=== PATIENT | female | born 1940 | race Caucasian/White ===

== ENCOUNTER 2020-09-02 06:09 | Inpatient (IN) ==
--- NOTE | 2020-08-18 13:11 | PAT Medication Instructions ---
Medication Instructions Date of Service August 18, 2020 Home Medications acetaminophen [Tylenol 8 Hour] 650 mg PO BID bisacodyl [Laxative (bisacodyl)] 5 mg PO HS buspirone 5 mg PO BID docusate sodium [Stool Softener] 100 mg PO PM ferrous sulfate [iron] 325 mg PO QAM gabapentin 100 mg PO BID hydrochlorothiazide 12.5 mg PO QAM lisinopril 10 mg PO QAM pantoprazole 40 mg PO QAM potassium chloride 20 meq PO QAM DO NOT take the morning of surgery hydrochlorothiazide 12.5 mg PO QAM lisinopril 10 mg PO QAM potassium chloride 20 meq PO QAM ferrous sulfate [iron] 325 mg PO QAM Take morning of surgery With a small sip of water, OTHERWISE NOTHING TO EAT OR DRINK AFTER MIDNIGHT: pantoprazole 40 mg PO QAM gabapentin 100 mg PO BID buspirone 5 mg PO BID acetaminophen [Tylenol 8 Hour] 650 mg PO BID (okay to take up to 4 hours prior to surgery if needed) Take evening before surgery acetaminophen [Tylenol 8 Hour] 650 mg PO BID bisacodyl [Laxative (bisacodyl)] 5 mg PO HS buspirone 5 mg PO BID docusate sodium [Stool Softener] 100 mg PO PM gabapentin 100 mg PO BID Other Notes If you have any questions please call us at [phone] or [phone] or [phone] or [phone]
--- NOTE | 2020-08-19 11:19 | Anesthesiology Consultation ---
Date of Service August 19, 2020 Assessment & Plan (1) Encounter for pre-operative examination: Chart Review Chart Review: Pending: Refer to Additional Notes / Consult section (pending surgeon ordered PCP clearance and preop Covid testing ) and Patient seen in Pre Admission Testing Pt does have dementia. answers most questions. Pt very pleasant and alert. May be helpful to have present preoperatively. Per PAT appt on 08/19/20, patient denies any recent travel. No known Covid positive contacts or Covid related symptoms. Scheduled for preop Covid testing 08/26/20- will await results. Educated on importance of self quarantining, social distancing and wearing mask in public both for the patient and household contacts. Last seen by cardio 05/22/20= seen for follow up. Hx of syncope- had LINQ monitor placed. Has been asymptomatic but has at least moderate dementia. On last device interrogation patient did have an SVT during sleep time hours. For the time being, we will continue to monitor. Unfortunately this person has worsening dementia and I think a conservative approach is warranted. Teaching & Discussion Pre-Anesthesia Teaching/Discussion Notes: Instructed NPO after midnight before surgery,except medications with 15 cc of water. Medication instructions provided according to the PAT guidelines. History Surgery Operation Date: 09/02/20 07:45 Proposed Procedures p L4-L5 Decompression, Fusion, Spinal Cord Monitoring - Orville Turner, Height/Weight Height: 5 ft 2 in Weight: 49.9 kg Allergies Allergy/AdvReac Type Severity Reaction Status Date / Time cephalexin [From Keflex] Allergy Intermediate Unknown Verified 08/18/20 08:37 Medications Home Medications Medication Instructions Recorded Confirmed Last Taken acetaminophen [Tylenol 8 Hour] 650 mg PO BID 08/18/20 08/18/20 Unknown bisacodyl [Laxative (bisacodyl)] 5 mg PO HS 08/18/20 08/18/20 Unknown buspirone 5 mg PO BID 08/18/20 08/18/20 Unknown docusate sodium [Stool Softener] 100 mg PO PM 08/18/20 08/18/20 Unknown ferrous sulfate [iron] 325 mg PO QAM 08/18/20 08/18/20 Unknown gabapentin 100 mg PO BID 08/18/20 08/18/20 Unknown hydrochlorothiazide 12.5 mg PO QAM 08/18/20 08/18/20 Unknown lisinopril 10 mg PO QAM 08/18/20 08/18/20 Unknown pantoprazole 40 mg PO QAM 08/18/20 08/18/20 Unknown potassium chloride 20 meq PO QAM 08/18/20 08/18/20 Unknown Past Medical History Medical History Anxiety CKD (chronic kidney disease) stage 3, GFR 30-59 ml/min Dementia HX PROVIDED BY PT'S Depression GERD (gastroesophageal reflux disease) MILD AND OCC History of cardiac monitoring HAS LOOP RECORDER IN PLACE /RIGHT CHEST. FOLLOWS [facility]/ DUE TO SYNCOPAL EPISODES IN PAST- LOOP RECORDER PLACED IN 2018- NO RECENT SYNCOPE EPISODES History of ileus NO RECENT ISSUES Hypertension Paroxysmal SVT (supraventricular tachycardia) Per records Exercise / Class Metabolic Activity III < 4 Walking/Shop/Light housework (no chest pain or SOB with flat surface ambulation) Past Surgical History Surgical History History of adenoidectomy History of cholecystectomy History of colonoscopy History of esophagogastroduodenoscopy (EGD) History of hysterectomy History of tonsillectomy History of tooth extraction Past Anesthesia History No Hx of Anesthesia Complications and No Family Hx of Anesthesia Complications History of PONV No Hx of PONV and No Hx of Motion Sickness Social History Smoking Status: Never smoker Do You Dip or Chew Tobacco: No Hx Alcohol Use: No Hx Substance Use: No substance use type: does not use Review of Systems Patient denies chest pain, shortness of breath, dyspnea on exertion, cough, wheezing, palpitations. No hx of seizures, stroke, MS, apnea/snoring. No hx of blood clots or blood transfusions Physical Exam Vital Signs VITALS BP 185/81 (pt states she is anxious) P 66 TEMP 97.8 SP02 96% RESP 16 Constitutional no acute distress ENMT Mouth: no TMJ clicking Thyromental Distance: > or= 3.5 Finger Breadths (3.5) Mallampati Class: I Full dentures upper and lower Neck + limited neck extension (mild) Respiratory normal respiratory effort; no respiratory distress Auscultation: lungs clear to auscultation bilaterally; no wheezes Cardiovascular Rate/Rhythm: regular rate and regular rhythm Heart Sounds: no murmur Vessels: no carotid bruit Musculoskeletal Spine: no pain with cervical ROM Extremities: extremities normal to inspection Psychiatric Orientation: alert Testing Laboratory Results 08/19/20 11:50 08/19/20 11:50 PT 10.7 Seconds (9.0-12.0) 08/19/20 11:50 INR 1.0 (0.9-1.1) 08/19/20 11:50 APTT 27.8 Seconds (21.0-31.0) 08/19/20 11:50 Urine Color Yellow 08/19/20 Unknown Urine Appearance Clear (Clear) 08/19/20 Unknown Urine pH 6.5 (4.5-7.5) 08/19/20 Unknown Ur Specific Kimball 1.018 (1.000-1.030) 08/19/20 Unknown Urine Protein Negative (Negative) 08/19/20 Unknown Urine Glucose (UA) Negative (Negative) 08/19/20 Unknown Urine Ketones Negative (Negative) 08/19/20 Unknown Urine Nitrite Negative (Negative) 08/19/20 Unknown Ur Leukocyte Esterase Negative (Negative) 08/19/20 Unknown Blood Type A Positive 08/19/20 11:50 Antibody Screen NEGATIVE 08/19/20 11:50 Electrocardiogram Date: 08/19/20 SR with premature supraventricular complexes at 61 bpm. Minimal voltage criteria for LVH, may be normal variant. Chest X-Ray Date: 08/19/20 Findings: + NAD An electronic device projects over the anterior chest wall, possibly representing an event recorder Echocardiogram Date: 07/24/18 EF: 65% LV Function: normal RWMA: + none Other Findings: + LVH (Borderline increased/concentric) Valvular Disease: + no significant valvular disease Nondilated cardiac chambers. Mild TR. Stress Test Date: 02/20/19 Type: DSE Resting EF: 65% Resting LV Function: normal Resting RWMA: + none Adequate dobutamine stress test at 100% of MPHR. No echographic evidence of dobutamine induced myocardial ischemia. Dobutamine stress EKG changes (1-[address] depression in II, III, aVF, and V5-6) are probably false positive. Left atrium mildly enlarged. Mild TR. Other Testing Loop recorder 07/03/2020 = [employer]. Placed 07/17/2018. Normal sinus rhythm with intact AV node function. Adequate battery reserve. Normal implanted memory loop recorder function. 04-15-20 Episode auto recorded in the Teja zone- EGM reveals sinus bradycardia at 40 bpm during hours of sleep. 05-21-2020- Episode auto recorded in the Pause zone- EGM reveals undersensing of the R wave.
[2020-08-19 12:56] LABS: Basophils # (auto) 0.04 K/uL (0-0.2); Basophils % (auto) 0.4 %; Eosinophils # (auto) 0.12 K/uL (0-0.5); Eosinophils % (auto) 1.3 %; Hematocrit (blood only) 43.2 % (37-47); Hemoglobin 13.7 g/dL (12.0-16.0); Immature Granulocytes # (auto) 0.02 K/uL (0.00-0.02); Immature Granulocytes % (auto) 0.2 %; Lymphocytes % (auto) 23.2 %; Mean Corpuscular Hemoglobin 29.3 pg (25-34); Mean Corpuscular Hgb Conc 31.7 g/dL (32-36); Mean Corpuscular Volume 92.5 fL (80-100); Mean Platelet Volume 10.5 fL (7.4-10.4); Monocytes # (auto) 0.72 K/uL (0.11-0.59); Monocytes % (auto) 7.6 %; Neutrophils # (auto) 6.37 K/uL (1.4-6.5); Neutrophils % (auto) 67.3 %; Platelet Count 256 K/uL (130-400); RDW Coefficient of Variation 13.2 % (11.5-14.5); RDW Standard Deviation 44.4 fL (36.4-46.3); Red Blood Count 4.67 M/uL (4.2-5.4); White Blood Count 9.47 K/uL (4.8-10.8)
--- NOTE | 2020-08-19 13:05 | XRay Report ---
XR chest Pre-admission PA/Lat CLINICAL HISTORY: Preoperative chest COMPARISON STUDY: No previous studies for comparison. FINDINGS: The heart is the upper limits of normal in size. There is no failure. There is no focal pul monary consolidation. There are no pleural effusions. An electronic device projects over the anterior chest wall, possibly representing an event recorder.[ IMPRESSION: No active disease in the chest. ACT 112: Negative or not required by law. Electronically signed by: Mahin Bah M.D. 08/19/2020 1:03 PM
[2020-08-19 13:08] LABS: Appearance Urine Clear (Clear); Bilirubin Urine Negative (Negative); Blood Urine Negative (Negative); Color Urine Yellow; Glucose Urine UA Negative (Negative); Ketones Urine Negative (Negative); Leukocyte Esterase Urine Negative (Negative); Nitrite Urine Negative (Negative); Protein Urine Negative (Negative); Specific Gravity Urine 1.018 (1.000-1.030); Urobilinogen Urine Negative (Negative); pH Urine 6.5 (4.5-7.5)
[2020-08-19 13:09] LABS: BUN Creatinine Ratio 15.7 (10-20); Calcium 9.1 mg/dl (8.5-10.1); Creatinine Clr Calc Pharmacy 33.3 ml/min; Est GFR (African American) 56.5; Est GFR (Non-African American) 48.8; Potassium 3.9 mmol/L (3.5-5.1)
[2020-08-19 13:11] LABS: Partial Thromboplastin Time 27.8 Seconds (21.0-31.0); Prothrombin Time 10.7 Seconds (9.0-12.0)
--- NOTE | 2020-08-19 15:40 | Electrocardiogram Report ---
Test Reason : Blood Pressure : / mmHG Vent. Rate : 061 BPM Atrial Rate : 061 BPM P-R Int : 176 ms QRS Dur : 086 ms QT Int : 422 ms P-R-T Axes : 068 005 046 degrees QTc Int : 424 ms Sinus rhythm with Premature supraventricular complexes Minimal voltage criteria for LVH, may be normal variant Borderline ECG No previous ECGs available Confirmed by Yoel Mason ([id number]) on 08/19/2020 3:40:07 PM Referred By: Orville Turner Confirmed By:Yoel Mason
[~2020-09-02 06:09] MED LIST: ACETAMINOPHEN 500 MG TAB PO SCH; CeleBREX 200 MG CAP PO SCH; GABAPENTIN 300 MG CAP PO SCH; LR 15ML/HR IV SCH; ceFAZolin 1000MG 1,000 MG/7.5 ML SYR IV SCH
[2020-09-02] MEDS ORDERED: GLYCOPYRROLATE 0.2 MG/ML VIAL ONE (06:51)
[2020-09-02] MEDS ORDERED: PROPOFOL IV EMULSION 10 MG/ML 20 ML VIAL IV ONE (06:51)
[2020-09-02] MEDS ORDERED: LIDOCAINE HCL 2% 2 ML VIAL/AMP(20MG/ML) INFIL ONE (06:51)
[2020-09-02] MEDS ORDERED: DEXAMETHASONE SOD INJ 4 MG/ML VIAL ONE (06:51)
[2020-09-02] MEDS ORDERED: ONDANSETRON INJ 2 MG/ML 2 ML VIAL ONE (06:51)
[2020-09-02] MEDS ORDERED: ROCURONIUM BROMIDE 10 MG/ML 5 ML VIAL IV ONE (06:51)
[2020-09-02] MEDS ORDERED: NEOSTIGMINE METHYLSULFATE 1 MG/ML 10ML VIAL ONE (06:51)
[2020-09-02] MEDS ORDERED: fentaNYL citrate 100 MCG/2 ML VIAL ONE ×2 (06:52→09:09)
[2020-09-02] MEDS ORDERED: ATROPINE SULFATE 0.1 MG/ML 10ML SYR IV PRN (07:27)
[2020-09-02] MEDS ORDERED: ONDANSETRON INJ 2 MG/ML 2 ML VIAL IV PRN ×2 (07:27→11:08)
[2020-09-02] MEDS ORDERED: fentaNYL citrate 100 MCG/2 ML VIAL IV PRN (07:27)
[2020-09-02] MEDS ORDERED: ePHEDrine sulfate 50 MG/ML AMP IV PRN (07:27)
--- NOTE | 2020-09-02 07:37 | History & Physical Bridge Note ---
Date of Service September 02, 2020 History & Physical Bridge Note I have examined the patient, reviewed the History & Physical and in the interval since the performance of the History & Physical I have noted the following changes of clinical significance: no changes noted
--- NOTE | 2020-09-02 07:38 | History & Physical Report ---
Date of Service September 02, 2020 Assessment & Plan (1) Neurogenic claudication due to lumbar spinal stenosis: Admission and Anticipated Discharge Date Admission Date: L4-L5 decompression fusion History of Present Illness Chief Complaint: Back and leg pain Primary Care Provider: NEIL Bowser This is a 80-year-old female who presents with chronic persistent back and leg pain. After failing course of nonoperative care is here for surgical invention. Allergies Allergy/AdvReac Type Severity Reaction Status Date / Time cephalexin [From Keflex] Allergy Intermediate Unknown Verified 09/02/20 06:37 Home Medications Medication Instructions Recorded Confirmed Type acetaminophen [Tylenol 8 Hour] 650 mg PO BID 08/18/20 09/02/20 History bisacodyl [Laxative (bisacodyl)] 5 mg PO HS 08/18/20 08/18/20 History buspirone 5 mg PO BID 08/18/20 09/02/20 History docusate sodium [Stool Softener] 100 mg PO PM 08/18/20 08/18/20 History ferrous sulfate [iron] 325 mg PO QAM 08/18/20 09/02/20 History gabapentin 100 mg PO BID 08/18/20 09/02/20 History hydrochlorothiazide 12.5 mg PO QAM 08/18/20 09/02/20 History lisinopril 10 mg PO QAM 08/18/20 09/02/20 History pantoprazole 40 mg PO QAM 08/18/20 09/02/20 History potassium chloride 20 meq PO QAM 08/18/20 09/02/20 History Past Med/Surg History Medical History Anxiety CKD (chronic kidney disease) stage 3, GFR 30-59 ml/min Dementia HX PROVIDED BY PT'S Depression GERD (gastroesophageal reflux disease) MILD AND OCC History of cardiac monitoring HAS LOOP RECORDER IN PLACE /RIGHT CHEST. FOLLOWS [facility]/ DUE TO SYNCOPAL EPISODES IN PAST- LOOP RECORDER PLACED IN 2018- NO RECENT SYNCOPE EPISODES History of ileus NO RECENT ISSUES Hypertension Paroxysmal SVT (supraventricular tachycardia) Per records Surgical History History of adenoidectomy History of cholecystectomy History of colonoscopy History of esophagogastroduodenoscopy (EGD) History of hysterectomy History of tonsillectomy History of tooth extraction Social History Smoking Status: Never smoker Second Hand Exposure: Yes ( KID); Do You Dip or Chew Tobacco: No; Tobacco Cessation Education Requested by Patient: No Hx Alcohol Use: No Hx Substance Use: No Preferred Language: Iraqi Communication Ability: Effective Picker Feeder Required: No Beliefs That Will Affect Care: None Current Living Situation: Spouse Other Information That Helps Us Care for You: No Feels Safe at Home: Yes Safety Concerns: Feels Safe At This Time Assistive Devices: Denture - Upper, Denture - Lower and Glasses Physical Exam Physical Exam: Patient is alert and oriented Lungs clear to auscultation Heart regular rate and rhythm Results & Data ([facility]) Vital Signs (Past 12 Hours) Vital Signs Temp Pulse Resp BP Pulse Ox 09/02/20 07:01 36.5 C 63 18 195/92 H 98
[2020-09-02] MEDS ORDERED: BACITRACIN INJ 50,000 UNIT VIAL ONE (07:41)
[2020-09-02] MEDS ORDERED: BUPIVACAINE/EPINEPHRINE 0.5% MPF 1:200,000 30 ML VIAL ONE (07:41)
[2020-09-02] MEDS ORDERED: FLOSEAL HEMOSTATIC MATRIX 10ML TOP ONE (08:48)
[2020-09-02] MEDS ORDERED: PHENYLEPHRINE HCL 10 MG/ML VIAL ONE (08:50)
[2020-09-02] MEDS ORDERED: ePHEDrine sulfate 50 MG/ML AMP ONE (08:50)
--- NOTE | 2020-09-02 09:35 | Operative Report ---
Post Operative Report Pre & Post Diagnosis Operation Date: 09/02/20 07:45 Pre-Op Diagnosis: Spinal Stenosis, Lumbar Region with Neurogenic Cla Post-Op Diagnosis: Spinal Stenosis, Lumbar Region with Neurogenic Cla I identified the patient and participated in the time-out.: Yes Procedure Operation Date: 09/02/20 07:45 Actual Procedures #1 lumbar decompression with bilateral medial facetectomies and foraminotomies L3-4 and L4-5 per #2 posterior spinal fusion L4-5. #3 placement posterior instrumentation L4-5. #4 interbody fusion L4-5. #5 placement peek cage 9 x 22 mm at L4-5 per #6 placement locally harvested morselized autograft in the posterior lateral gutters. #7 placement infuse collagen sponge, master graft in the posterior lateral gutters and ostial amp interbody space. Surgeon Orville Turner, Welder Apprentice Anahi Guillory Estimated Blood Loss 50 Findings Consistent with Post-Op Diagnosis Specimens None Indications This is a 80-year-old female who presents with above-mentioned diagnosis after failing course of nonoperative care is here for the above-mentioned seizure. Description of Procedure Patient met with identified informed consent obtained. Patient was then taken to the operative suite underwent a patient placed in a prone position the Bonilla table on top of the Cj frame. All bony prominences well-padded eyes inspected to ensure no external pressure placed upon the. This point the lumbar spine was prepped and draped in a sterile fashion. Sharp dissection with the assistance of Bovie cautery performed down to and exposing the lamina and transverse processes of L4-L5 bilaterally. From caudal cephalad fashion complete laminectomy L4 partial laminectomy of L3 was performed including bilateral medial facetectomies and foraminotomies addressing severe spinal stenosis. Pedicle screws were then placed in L4 and L5 bilaterally with assi stance of fluoroscopy and appropriately sized laly placed. By way of a transforaminal portion right complete discectomy was performed endplates curetted to subcortical bleeding bone and a 9 x 22 mm peek cage filled osteobone graft tapped in position. The rods were then locked in final position. The transverse processes of L4 and L5 burred to subcortical bleeding bone. Infuse collagen sponge master graft local autograft was placed in the posterior gutters. 15 round NAEL drain inserted. The incision was then closed with 1 Vicryl in the fascia 2-0 Vicryl subcutaneously and 4 Monocryl for final skin closure. Steri-Strip sterile dressings placed. Patient waken taken PACU stable condition. Please note spinal cord monitoring was utilized at the procedure no changes noted. Lastly Anahi Guillory was present at the entire surgery involved the patient positioning complex portions of the surgery and final skin closure. I attest to the content of the Intraoperative Record and any orders documented therein. Any exceptions are noted below.
--- NOTE | 2020-09-02 09:42 | Fluoroscopy Report ---
FL lumbar spine 2-3V HISTORY: 80 years-old Female L4-5 DECOMPRESSION/FUSION/INTERBODY COMPARISON: Lumbar spine MRI 06/26/2020 TECHNIQUE: 2 spot fluoroscopic images of the lumbar spine were obtained utilizing 16.2 seconds fluoro scopy time. FINDINGS: Laminectomy with posterior interbody laly and screw fusion and discectomy changes at L4-L5. There is p ersistent grade 1 anterolisthesis L4 on L5. Hardware appears intact. No opaque foreign body or acute fracture. IMPRESSION: Fluoroscopic assistance as above. Please see operative report for further details. ACT 112: Negative or not required by law. The above report was generated using voice recognition software. It may contain grammatical, syntax o r spelling errors. Electronically signed by: Eligio Yang M.D. 09/02/2020 9:40 AM
--- NOTE | 2020-09-02 10:28 | Anesthesiology Progress Note ---
Date of Service September 02, 2020 Anesthesia Post Procedure Vital Signs Vital Signs: Temp Pulse Pulse Resp BP BP Pulse Ox 09/02/20 10:25 97.2 F L 75 16 156/87 H 99 09/02/20 10:15 77 22 154/86 H 99 09/02/20 10:05 85 24 168/80 H 100 09/02/20 09:55 55 L 12 126/58 L 100 09/02/20 09:47 98.1 F 61 16 138/63 100 09/02/20 07:01 97.7 F 63 18 195/92 H 98 Transfer of Care Handoff Completed per policy Notes Mental Status: alert / awake / arousable and participated in evaluation Patient Amnestic to Procedure: Yes Nausea / Vomiting: adequately controlled Pain: adequately controlled Airway Patency, RR, SpO2: stable & adequate BP & HR: stable & adequate Hydration State: stable & adequate Anesthetic Complications: no major complications apparent and Pt Satisfied with anesthetic care
[2020-09-02] MEDS: LACTATED RINGER'S 1,000 ML IV SCH ×2 (10:45→21:02)
[2020-09-02] MEDS ORDERED: DO NOT ADMINISTER PNEUMOCOCCAL VACCINE PRN (11:08)
[2020-09-02] MEDS ORDERED: PROMETHAZINE HCL 12.5 MG in SODIUM CHLORIDE 0.9% 50 ML IV PRN (11:08)
[2020-09-02] MEDS ORDERED: ACETAMINOPHEN 500 MG TAB PO PRN (11:08)
[2020-09-02] MEDS ORDERED: SOD PHOSPHATE/SOD BIPHOSPHATE ENEMA 132 ML BTL PR PRN (11:08)
[2020-09-02] MEDS ORDERED: ALUMINUM/MAGNESIUM SUSP 30 ML UDC PO PRN (11:08)
[2020-09-02] MEDS ORDERED: METOCLOPRAMIDE HCL INJ 5 MG/ML 2 ML VIAL IV PRN (11:08)
[2020-09-02] MEDS ORDERED: hydrOXYzine HCl 25 MG TAB PO PRN (11:08)
[2020-09-02] MEDS ORDERED: NALOXONE HCL 0.4 MG/1 ML VIAL/CARP IV PRN (11:08)
[2020-09-02] MEDS ORDERED: FAMOTIDINE 20 MG TAB PO PRN (11:08)
[2020-09-02] MEDS ORDERED: ONDANSETRON 4 MG OD TAB PO PRN (11:08)
[2020-09-02] MEDS ORDERED: MAGNESIUM HYDROXIDE SUSP 30 ML UDC PO PRN (11:08)
[2020-09-02] MEDS ORDERED: LORazepam 0.5 MG/1 ML VIAL IV PRN (11:08)
[2020-09-02] MEDS ORDERED: ACETAMINOPHEN 1,000 MG/100 ML VIAL IV PRN (11:08)
[2020-09-02] MEDS ORDERED: bisacodyL 10 MG SUPP PR PRN (11:08)
[2020-09-02] MEDS ORDERED: DO NOT ADMINISTER FLU VACCINE PRN (11:08)
[2020-09-02] MEDS ORDERED: diphenhydrAMINE Capsule 25 MG CAP PO PRN (11:08)
--- NOTE | 2020-09-02 13:05 | Hospitalist Consultation ---
Date of Consultation September 02, 2020 Assessment & Plan (1) S/P spinal surgery: This is a 80yo F with a PMH of paroxysmal SVT, hypertension, Alzheimer's, GERD, anxiety and other medical problems listed below who is POD#0 s/p lumbar decompression and fusion L3-4 and L4-[address] Turner. -POD#0 s/p lumbar decompression and fusion L3-4 and L4-[address] Turner -Pt is doing well post-operatively -Per ortho for pain control, wound care, anticoagulation and activities -Monitor H&H (EBL 50ml, pre-op hgb 13.7), continue incentive spirometry, PT/OT when appropriate (2) Hypertension: BP elevated post-operatively at 174/90. Did not take AM medications -given 10mg Lisinopril now with instructions for RN to reassess -Optimize pain control post-operatively - difficult in setting of patient's dementia. Scheduled Tylenol, monitor closely for signs of pain such as grimacing, moaning or restlessness (3) Paroxysmal SVT (supraventricular tachycardia): History of tachyarrhythmia in the past. Had LINQ monitor placed - most recent LINQ interrogation do not detect any dysrhythmias -Not currently on any medication -Follows with Dr. Baldwin of [place] [facility] - seen for pre-op eval (4) CKD (chronic kidney disease) stage 3, GFR 30-59 ml/min: Baseline Cr ~1. Monitor renal function with daily BMP (5) Anxiety: Continue Buspar (6) Dementia: care provider. Has not tolerated Aricept or Namenda (7) GERD (gastroesophageal reflux disease): Continue PPI PCP: NEIL Rincon Dispo: Per primary service Patient seen in collaboration with Dr. Flower. Please see addendum. Thank you for this consultation. We will follow the patient with you during their hospital stay. You can reach a member of the [facility] Hospitalist Team 04/04 via pager @ [phone]. Supervising Physician Co-Signing Physician Notes Pt was seen and examined. Agreed with Diana SMITH exam assessment and plan. 80yo F with a PMH of paroxysmal SVT, hypertension, Alzheimer's, GERD, anxiety, failed conservative management, had lumbar decompression and fusion L3-4 and L4-[address] Turner today. No postop complications. Pain management as per ortho. Continue incentive spirometry. PT/OT eval. Fall precaution. Will monitor H/H. BP elevated possible related to hospital setting vs pain. Will add hydralazine IV prn. Continue monitor closely. MD Mundo History of Present Illness Reason for Consultation: consult med [facility] Attending Physician: Orville Turner DO History of Present Illness This is a 80yo F with a PMH of paroxysmal SVT, hypertension, Alzheimer's, GERD, anxiety and other medical problems listed below who is POD#0 s/p lumbar decompression and fusion L3-4 and L4-[address] Turner. Patient is feeling well postoperatively. at bedside, and provided some of the history due to patient's Alzheimer's. Patient denies any pain. Has some lightheadedness when she sits upright but denies any fever, chills, headache, cough, chest pain, shortness of breath, nausea, vomiting, abdominal pain, dysuria, diarrhea constipation. Last bowel movement was this morning prior to arrival. Has not yet taking any morning medications. Allergies Allergy/AdvReac Type Severity Reaction Status Date / Time cephalexin [From Keflex] Allergy Intermediate Unknown Verified 09/02/20 06:37 Home Medications Medication Instructions Recorded Confirmed Type acetaminophen [Tylenol 8 Hour] 650 mg PO BID 08/18/20 09/02/20 History bisacodyl [Laxative (bisacodyl)] 5 mg PO HS PRN 08/18/20 09/02/20 History buspirone 10 mg PO BID 08/18/20 09/02/20 History docusate sodium [Stool Softener] 100 mg PO PM 08/18/20 09/02/20 History ferrous sulfate [iron] 325 mg PO QAM 08/18/20 09/02/20 History gabapentin 100 mg PO BID 08/18/20 09/02/20 History hydrochlorothiazide 12.5 mg PO QAM 08/18/20 09/02/20 History lisinopril 10 mg PO QAM 08/18/20 09/02/20 History pantoprazole 40 mg PO QAM 08/18/20 09/02/20 History potassium chloride 20 meq PO BID 08/18/20 09/02/20 History Patient History Medical History (Updated 09/02/20 @ 13:20 by Diana Weir PA-C) Anxiety CKD (chronic kidney disease) stage 3, GFR 30-59 ml/min Dementia HX PROVIDED BY PT'S Depression GERD (gastroesophageal reflux disease) MILD AND OCC History of cardiac monitoring HAS LOOP RECORDER IN PLACE /RIGHT CHEST. FOLLOWS [facility]/ DUE TO SYNCOPAL EPISODES IN PAST- LOOP RECORDER PLACED IN 2018- NO RECENT SYNCOPE EPISODES History of ileus NO RECENT ISSUES Hypertension Paroxysmal SVT (supraventricular tachycardia) Per records Surgical History (Updated 09/02/20 @ 13:20 by Diana Weir PA-C) History of adenoidectomy History of cholecystectomy History of colonoscopy History of esophagogastroduodenoscopy (EGD) History of hysterectomy History of tonsillectomy History of tooth extraction Family History Other Arthritis Heart disease Social History Smoking Status: Never smoker Second Hand Exposure: Yes ( KID); Do You Dip or Chew Tobacco: No; Tobacco Cessation Education Requested by Patient: No Hx Alcohol Use: No Hx Substance Use: No Preferred Language: Albanian Communication Ability: Effective Acting Teacher Required: No Beliefs That Will Affect Care: None Current Living Situation: Spouse Other Information That Helps Us Care for You: No Feels Safe at Home: Yes Safety Concerns: Feels Safe At This Time Assistive Devices: Walker Review of Systems Review of Systems: At least ten systems reviewed and negative except as noted in the HPI. Physical Exam Physical Exam: General Appearance: WD/WN, vitals as above, NAD, sitting up in bed, pleasant, conversing easily Head: normocephalic, atraumatic Eyes: normal inspection, PERRL, conjunctivae normal, anicteric sclerae ENT: external ear and nose normal, oropharynx normal Neck: normal visual inspection, trachea midline, no thyromegaly Respiratory: normal respiratory effort, lungs clear to auscultation, no wheeze, rales, rhonchi. No accessory muscle use Cardiovascular: regular rate, rhythm, no murmur, normal peripheral pulses, no BLE edema Abdomen/GI: normal bowel sounds, soft, nontender, no hepatosplenomegaly Extremities/Musculoskeletal: +Lumbosacral spinal dressing c/d/i. NAEL drain visualized. No cyanosis or clubbing, extremities motor strength 5/5 Neurologic: PERRL, CN's II-XI intact bilaterally and moves all extremities Psychiatric: Alert to person and place but not time or situation, euthymic affect Skin: no rashes, normal color, warm/dry Results & Data Results & Data ([facility]) Vital Signs (Past 12 Hours) Vital Signs Temp Pulse Pulse Pulse Resp BP BP 09/02/20 12:42 36.3 C L 60 18 182/81 H 09/02/20 11:45 61 18 178/75 H 09/02/20 11:14 36.4 C L 61 16 180/72 H 09/02/20 10:45 36.4 C L 64 16 170/76 H 09/02/20 10:35 36.2 C L 67 16 150/77 H 09/02/20 10:25 36.2 C L 75 16 156/87 H 09/02/20 10:15 77 22 154/86 H 09/02/20 10:05 85 24 168/80 H 09/02/20 09:55 55 L 12 126/58 L 09/02/20 09:47 36.7 C 61 16 138/63 09/02/20 07:01 36.5 C 63 18 195/92 H Pulse Ox 09/02/20 12:42 96 09/02/20 11:45 97 09/02/20 11:14 97 09/02/20 10:45 97 09/02/20 10:35 100 09/02/20 10:25 99 09/02/20 10:15 99 09/02/20 10:05 100 09/02/20 09:55 100 09/02/20 09:47 100 09/02/20 07:01 98
[2020-09-02] MEDS ORDERED: lisinopril 10 MG TAB PO ONE (14:30)
[2020-09-02] MEDS: ACETAMINOPHEN 500 MG TAB PO SCH ×2 (14:45→22:04)
[2020-09-02] MEDS ORDERED: COUGH DROP (SUGAR FREE) LOZ 24 LOZ/1 BOX BUCCAL ONE (15:48)
[2020-09-02] MEDS ORDERED: busPIRone 5 MG TAB PO SCH (21:00)
[2020-09-02] MEDS ORDERED: ACETAMINOPHEN 325 MG TAB PO SCH (21:00)
[2020-09-02] MEDS: DOCUSATE SODIUM 100 MG CAP PO SCH (21:08)
[2020-09-02] MEDS: busPIRone 5 MG TAB PO SCH (21:08)
[2020-09-02] MEDS: DOCUSATE SODIUM/SENNA 50/8.6MG TAB PO SCH (21:08)
[2020-09-02] MEDS: GABAPENTIN 100 MG CAP PO SCH (21:08)
[2020-09-02] MEDS: bisacodyL 5 MG TABEC PO SCH (21:08)
[2020-09-03] MEDS: POLYETHYLENE (MIRALAX) 17 GM PACK PO SCH ×3 (05:42→17:07)
[2020-09-03] MEDS: ACETAMINOPHEN 500 MG TAB PO SCH ×3 (05:42→23:18)
[2020-09-03] MEDS: HYDROmorphone INJ 0.5 MG/0.5 ML SYR IV PRN ×2 (06:31→20:24)
[2020-09-03] MEDS: LACTATED RINGER'S 1,000 ML IV SCH (07:17)
[2020-09-03 07:18] LABS: Basophils # (auto) 0.02 K/uL (0-0.2); Basophils % (auto) 0.2 %; Eosinophils # (auto) 0.11 K/uL (0-0.5); Hematocrit (blood only) 34.1 % (37-47); Hemoglobin 11.3 g/dL (12.0-16.0); Immature Granulocytes # (auto) 0.02 K/uL (0.00-0.02); Immature Granulocytes % (auto) 0.2 %; Lymphocytes % (auto) 27.9 %; Mean Corpuscular Hemoglobin 29.8 pg (25-34); Mean Corpuscular Hgb Conc 33.1 g/dL (32-36); Mean Platelet Volume 10.9 fL (7.4-10.4); Monocytes # (auto) 1.12 K/uL (0.11-0.59); Monocytes % (auto) 9.8 %; Neutrophils # (auto) 6.98 K/uL (1.4-6.5); Neutrophils % (auto) 60.9 %; Platelet Count 181 K/uL (130-400); RDW Standard Deviation 42.8 fL (36.4-46.3); Red Blood Count 3.79 M/uL (4.2-5.4); White Blood Count 11.45 K/uL (4.8-10.8)
[2020-09-03 07:50] LABS: BUN Creatinine Ratio 15.7 (10-20); Calcium 8.7 mg/dl (8.5-10.1); Creatinine Clr Calc Pharmacy 38.7 ml/min; Est GFR (African American) 68.6; Est GFR (Non-African American) 59.2; Potassium 3.7 mmol/L (3.5-5.1)
[2020-09-03] MEDS: PANTOprazole 40 MG TAB PO SCH (08:06)
[2020-09-03] MEDS: busPIRone 5 MG TAB PO SCH ×2 (08:06→20:21)
[2020-09-03] MEDS: FERROUS SULFATE 325 MG TAB PO SCH (08:06)
[2020-09-03] MEDS: lisinopril 10 MG TAB PO SCH (08:07)
[2020-09-03] MEDS: POTASSIUM CHLORIDE CRTAB 20 MEQ TABCR PO SCH (08:07)
[2020-09-03] MEDS: GABAPENTIN 100 MG CAP PO SCH ×2 (08:07→20:22)
[2020-09-03] MEDS: hydrALAZINE HCL 20 MG/ML VIAL IV PRN (08:10)
--- NOTE | 2020-09-03 09:01 | Hospitalist Progress Note ---
Date of Service September 03, 2020 Assessment & Plan (1) S/P spinal surgery: This is a 80yo F with a PMH of paroxysmal SVT, hypertension, Alzheimer's, GERD, anxiety and other medical problems listed below who is POD#1 s/p lumbar decompression and fusion L3-4 and L4-[address] Turner. EBL 50 ml; NAEL Drain 135ml tolerated procedure well Per ortho for pain control, wound care, anticoagulation and activities Monitor H&H (EBL 50ml, pre-op hgb 13.7), continue incentive spirometry, PT/OT when appropriate (2) Anemia: Preop hemoglobin 13.7 H&H 11.3 and 34.1 today Likely dilutional, as patient did not have significant blood loss EBL 50 mL, NAEL drain 315 mL monitor h/h (3) Hypertension: BP remains labile and elevated resume lisinopril and HCTZ, did not take a.m. meds PRN hydralazine for SBP > 170 Optimize pain control post-operatively - difficult in setting of patient's dementia. Scheduled Tylenol, monitor closely for signs of pain such as grimacing, moaning or restlessness (4) Paroxysmal SVT (supraventricular tachycardia): History of tachyarrhythmia in the past. Had LINQ monitor placed - most recent LINQ interrogation do not detect any dysrhythmias Not currently on any medication Follows with Dr. Baldwin of [place] [facility] - seen for pre-op eval (5) CKD (chronic kidney disease) stage 3, GFR 30-59 ml/min: Baseline Cr ~1. Monitor renal function with daily BMP (6) Anxiety: Continue Buspar mood stable (7) Dementia: care provider. Has not tolerated Aricept or Namenda mood stable, alert and oriented to self (8) GERD (gastroesophageal reflux disease): Continue PPI PCP: NEIL Rincon Dispo: Per primary service Patient seen in collaboration with Dr. Blackburn. Please see addendum. Thank you for this consultation. We will follow the patient with you during their hospital stay. You can reach a member of the [facility] Hospitalist Team 04/04 via pager @ [phone]. Admission and Anticipated Discharge Date Admission Date: September 02, 2020 Supervising Physician Co-Signing Physician Notes Patient seen and examined Refer to Radha Sanders's note for details She only complains of occasional pain at surgical site On exam, has clean dressing over the back with drain in situ. Also elevated BP Lab work showed Hb of 11.3 -Resume all home antihypertensives (lisinopril and HCTZ) -Optimize pain control -If BP still poorly controlled, will increase dose of lisinopril to 20mg -Monitor Hb -PT/OT -Surgical site management per Primary surgical team I agree with other plans as detailed above Subjective Patient was seen and examined in room 363. Postop lumbar decompression fusion by Dr. Turner. Follow-up for hypertension. "I am feeling much better than yesterday." She states her pain is much improved. She is currently eating breakfast. She denies fever, chills, sweats, lightheadedness, dizziness, chest pain, shortness breath, cough, nausea, vomiting, abdominal pain. She is passing flatus. Patient does have underlying dementia therefore ROS is unreliable. Review of Systems Review of Systems: All systems reviewed & are unremarkable except as noted in HPI & below Physical Exam Physical Exam: Gen: WD/WN, elderly, female, pleasant NAD, A&O to self, year, hospital HEENT: Normocephalic, atraumatic, conjunctivae moist, sclerae anicteric, mucous membranes moist. Lung: Clear to Auscultation bilaterally, no wheezes/rales/rhonchi Heart: Regular rate, regular rhythm, no murmurs, rubs, or gallops Abdomen: Soft, NT, ND +BS x 4 Extremities: No edema, lumbar dressing CDI, NAEL drain intact Skin: Warm, no rash, negative turgor. Results & Data Results & Data ([facility]) Vital Signs (Past 12 Hours) Vital Signs Temp Pulse Pulse Resp BP BP Pulse Ox 09/03/20 08:00 67 181/76 H 09/03/20 07:32 36.5 C 65 18 180/69 H 95 09/03/20 03:27 36.3 C L 55 L 16 153/67 H 99 09/02/20 23:33 36.4 C L 62 16 136/78 09/02/20 22:03 60 166/76 H Laboratory Results Short CBC 09/03/20 Range/Units 06:44 WBC 11.45 H (4.8-10.8) K/uL Hgb 11.3 L (12.0-16.0) g/dL Hct 34.1 L (37-47) % Plt Count 181 (130-400) K/uL [facility] 09/03/20 06:44 Sodium 136 Potassium 3.7 Chloride 102 Carbon Dioxide 27 BUN 14 Creatinine 0.92 Glucose 86 Calcium 8.7 Medications Administered Acetaminophen (Acetaminophen 500 Mg Tab) 1,000 mg PO Q8 ELIJAH Stop: 10/02/20 14:59 Last Admin: 09/03/20 05:42 Dose: 1,000 mg Documented by: [id number] Admin: 09/02/20 22:04 Dose: 1,000 mg Documented by: [id number] Admin: 09/02/20 14:45 Dose: 1,000 mg Documented by: [id number] Bisacodyl (Bisacodyl 5 Mg Tabec) 5 mg PO HS [facility] Stop: 10/02/20 20:59 Last Admin: 09/02/20 21:08 Dose: 5 mg Documented by: [id number] Buspirone HCl (Buspirone 5 Mg Tab) 10 mg PO BID ELIJAH Stop: 10/02/20 20:59 Last Admin: 09/03/20 08:06 Dose: 10 mg Documented by: [id number] Admin: 09/02/20 21:08 Dose: 10 mg Documented by: [id number] Docusate Sodium (Docusate Sodium 100 Mg Cap) 100 mg PO PM [facility] Stop: 10/02/20 20:59 Last Admin: 09/02/20 21:08 Dose: 100 mg Documented by: [id number] Ferrous Sulfate (Ferrous Sulfate 325 Mg Tab) 325 mg PO QAM ELIJAH Stop: 10/03/20 08:59 Last Admin: 09/03/20 08:06 Dose: 325 mg Documented by: [id number] Gabapentin (Gabapentin 100 Mg Cap) 100 mg PO BID [facility] Stop: 10/02/20 20:59 Last Admin: 09/03/20 08:07 Dose: 100 mg Documented by: [id number] Admin: 09/02/20 21:08 Dose: 100 mg Documented by: [id number] Hydralazine HCl (Hydralazine Hcl 20 Mg/Ml Vial) 5 mg IV Q6H PRN PRN Reason: for SBP above 170 Stop: 10/02/20 22:59 Last Admin: 09/03/20 08:10 Dose: 5 mg Documented by: [id number] Hydromorphone HCl (Hydromorphone Inj 0.5 Mg/0.5 Ml Syr) 0.5 mg IV Q3H PRN PRN Reason: MOD pain (scale 4-6) & Pre PT Stop: 09/16/20 11:07 Last Admin: 09/03/20 06:31 Dose: 0.5 mg Documented by: [id number] Lisinopril (Lisinopril 10 Mg Tab) 10 mg PO QAM [facility] Stop: 10/03/20 08:59 Last Admin: 09/03/20 08:07 Dose: 10 mg Documented by: [id number] Ondansetron HCl (Ondansetron Inj 2 Mg/Ml 2 Ml Vial) 4 mg IV Q6H PRN PRN Reason: Nausea &/or Vomiting Stop: 10/02/20 11:07 Last Admin: 09/02/20 12:35 Dose: 4 mg Documented by: [id number] Pantoprazole Sodium (Pantoprazole 40 Mg Tab) [facility] [place]: 10/03/20 08:59 Last Admin: 09/03/20 08:06 Dose: 40 mg Documented by: [id number] Polyethylene Glycol (Polyethylene (Miralax) 17 Gm Pack) 17 gm PO Q6 [facility] Stop: 10/03/20 05:59 Last Admin: 09/03/20 05:42 Dose: 17 gm Documented by: [id number] Potassium Chloride (Potassium Chloride Crtab 20 Meq Tabcr) 20 meq [facility] Stop: 10/03/20 08:59 Last Admin: 09/03/20 08:07 Dose: 20 meq Documented by: [id number] Senna/Docusate Sodium (Docusate Sodium/Senna 50/8.6mg Tab) 2 tab PO HS [facility] Stop: 10/02/20 20:59 Last Admin: 09/02/20 21:08 Dose: 2 tab Documented by: [id number] Discontinued Medications Acetaminophen (Acetaminophen 500 Mg Tab) 1,000 mg PO PREOP [facility] Stop: 09/02/20 18:00 Last Admin: 09/02/20 06:58 Dose: 1,000 mg Documented by: [id number] Bacitracin (Bacitracin Inj 50,000 Unit Vial) Confirm Administered Dose 50,000 units .ROUTE .[facility] Stop: 12/22/20 07:42 Last Admin: 09/02/20 08:30 Dose: 50,000 units Documented by: [id number] Bupivacaine HCl/Epinephrine Bitart (Bupivacaine/Epinephrine 0.5% Mpf 1:200,000 30 Ml Vial) Confirm Administered Dose 30 ml .ROUTE .[facility]-MED ONE Stop: 09/02/20 07:42 Last Admin: 09/02/20 08:31 Dose: 20 ml Documented by: [id number] Celecoxib (Celebrex 200 Mg Cap) 200 mg PO PREOP ELIJAH Stop: 09/02/20 18:00 Last Admin: 09/02/20 06:58 Dose: 200 mg Documented by: [id number] Gabapentin (Gabapentin 300 Mg Cap) 300 mg PO PREOP ELIJAH Stop: 09/02/20 18:00 Last Admin: 09/02/20 06:58 Dose: 300 mg Documented by: [id number] Cefazolin Sodium (Ancef 1000mg) 1,000 mg in 7.5 mls @ 2.5 mls/min IV PREOP ELIJAH; Protocol Stop: 09/02/20 18:00 Last Admin: 09/02/20 07:51 Dose: 2.5 mls/min Documented by: [id number] Lactated Ringer's (Lr) 1,000 mls @ 15 mls/hr IV .Q24H ELIJAH Stop: 09/03/20 05:59 Last Infusion: 09/02/20 07:51 Dose: 0 mls/hr Documented by: [id number] Admin: 09/02/20 06:58 Dose: 15 mls/hr Documented by: [id number] Lactated Ringer's (Lr) 1,000 mls @ 100 mls/hr IV .Q10H ELIJAH Stop: 10/02/20 11:07 Last Infusion: 09/03/20 08:15 Dose: 0 mls/hr Documented by: [id number] Admin: 09/03/20 07:17 Dose: 100 mls/hr Documented by: [id number] Infusion: 09/03/20 07:02 Dose: 100 mls/hr Documented by: [id number] Admin: 09/02/20 21:02 Dose: 100 mls/hr Documented by: [id number] Infusion: 09/02/20 20:45 Dose: 100 mls/hr Documented by: [id number] Admin: 09/02/20 10:45 Dose: 100 mls/hr Documented by: [id number] Lisinopril (Lisinopril 10 Mg Tab) 10 mg PO NOW ONE Stop: 09/02/20 14:31 Last Admin: 09/02/20 15:50 Dose: 10 mg Documented by: [id number] Menthol (Cough Drop (Sugar Free) Radha 24 Radha/1 Box) Confirm Administered Dose 24 radha BUCCAL .STK-MED ONE Stop: 09/02/20 15:49 Last Admin: 09/02/20 15:51 Dose: 24 radha Documented by: [id number] Miscellaneous ( Floseal Hemostatic Matrix 10ml) 20 ml TOP ONCE ONE Stop: 09/02/20 08:49 Last Admin: 09/02/20 09:29 Dose: 20 ml Documented by: [id number]
--- NOTE | 2020-09-03 10:45 | Orthopedic Progress Note ---
Date of Service September 03, 2020 Assessment & Plan (1) Neurogenic claudication due to lumbar spinal stenosis: Admission and Anticipated Discharge Date Admission Date: September 02, 2020 At this time we will continue physical therapy monitor her NAEL operatively di amarjit home as soon as tomorrow if stable. Subjective Back pain is controlled leg symptoms improved her is at the bedside. Physical Exam Physical Exam: On exam she appears comfortable. Is good strength testing. Results & Data ([facility]) Vital Signs (Past 12 Hours) Vital Signs Temp Pulse Pulse Resp BP BP Pulse Ox 09/03/20 08:00 67 181/76 H 09/03/20 07:32 36.5 C 65 18 180/69 H 95 09/03/20 03:27 36.3 C L 55 L 16 153/67 H 99 09/02/20 23:33 36.4 C L 62 16 136/78
[2020-09-03] MEDS: oxyCODONE HCL IR 5 MG TAB (IMMEDIATE RELEASE) PO PRN ×3 (10:53→18:26)
[2020-09-03] MEDS: hydroCHLOROthiazide 25 MG TAB PO SCH (10:53)
[2020-09-03] MEDS: LORazepam 0.5 MG TAB PO PRN (16:30)
[2020-09-03] MEDS: DOCUSATE SODIUM 100 MG CAP PO SCH (20:21)
[2020-09-03] MEDS: DOCUSATE SODIUM/SENNA 50/8.6MG TAB PO SCH (20:22)
[2020-09-03] MEDS: bisacodyL 5 MG TABEC PO SCH (20:24)
[2020-09-04] MEDS: POLYETHYLENE (MIRALAX) 17 GM PACK PO SCH ×4 (00:03→17:53)
[2020-09-04] MEDS: traMADol HCL 50 MG TABLET PO PRN ×2 (05:28→11:33)
[2020-09-04] MEDS: ACETAMINOPHEN 500 MG TAB PO SCH ×3 (05:29→22:01)
[2020-09-04 06:31] LABS: Appearance Urine Clear (Clear); Bilirubin Urine Negative (Negative); Blood Urine Negative (Negative); Color Urine Yellow; Glucose Urine UA Negative (Negative); Ketones Urine Trace (Negative); Leukocyte Esterase Urine Negative (Negative); Nitrite Urine Negative (Negative); Protein Urine Negative (Negative); Specific Gravity Urine 1.014 (1.000-1.030); Urobilinogen Urine Negative (Negative); pH Urine 5.5 (4.5-7.5)
[2020-09-04 08:06] LABS: Hemoglobin 10.4 g/dL (12.0-16.0); Mean Corpuscular Hemoglobin 29.5 pg (25-34); Mean Corpuscular Hgb Conc 32.5 g/dL (32-36); Mean Corpuscular Volume 90.7 fL (80-100); Mean Platelet Volume 10.3 fL (7.4-10.4); Platelet Count 191 K/uL (130-400); RDW Coefficient of Variation 13.3 % (11.5-14.5); RDW Standard Deviation 43.5 fL (36.4-46.3); Red Blood Count 3.53 M/uL (4.2-5.4); White Blood Count 14.24 K/uL (4.8-10.8)
[2020-09-04 08:41] LABS: BUN Creatinine Ratio 13.7 (10-20); Calcium 8.7 mg/dl (8.5-10.1); Creatinine Clr Calc Pharmacy 40.9 ml/min; Est GFR (African American) 73.4; Est GFR (Non-African American) 63.4; Potassium 3.7 mmol/L (3.5-5.1)
--- NOTE | 2020-09-04 09:41 | Orthopedic Progress Note ---
Date of Service September 04, 2020 Assessment & Plan (1) Neurogenic claudication due to lumbar spinal stenosis: Admission and Anticipated Discharge Date Admission Date: September 02, 2020 This time we will continue physical therapy and attempt to make her more ind ependent. Possible discharge home tomorrow. Subjective Back pain controlled leg Physical Exam Physical Exam: Patient is in the chair at the bedside is good strength testing appears comfortable. Results & Data ([facility]) Vital Signs (Past 12 Hours) Vital Signs Temp Pulse Resp BP BP Pulse Ox 09/04/20 08:00 36.6 C 86 18 146/78 H 93 09/04/20 07:20 36.8 C 86 16 146/78 H 93
[2020-09-04] MEDS: FERROUS SULFATE 325 MG TAB PO SCH (09:50)
[2020-09-04] MEDS: busPIRone 5 MG TAB PO SCH ×2 (09:50→22:08)
[2020-09-04] MEDS: hydroCHLOROthiazide 25 MG TAB PO SCH (09:51)
[2020-09-04] MEDS: POTASSIUM CHLORIDE CRTAB 20 MEQ TABCR PO SCH (09:51)
[2020-09-04] MEDS: GABAPENTIN 100 MG CAP PO SCH ×2 (09:54→22:00)
[2020-09-04] MEDS: PANTOprazole 40 MG TAB PO SCH (09:56)
[2020-09-04] MEDS: lisinopril 10 MG TAB PO SCH (09:58)
[2020-09-04] MEDS: DEXAMETHASONE SOD PHOSPHATE 6 MG in SYRINGE 0 ML IV SCH (10:28)
--- NOTE | 2020-09-04 12:47 | Hospitalist Progress Note ---
Date of Service September 04, 2020 Assessment & Plan (1) S/P spinal surgery: 80yo F with a PMH of paroxysmal SVT, hypertension, Alzheimer's, GERD, anxiety and other medical problems listed below who is POD#2 s/p lumbar decompression and fusion L3-4 and L4-[address] Turner. Per ortho for pain control, wound care, anticoagulation and activities Continue PT/OT Surgical drain has been removed (2) Anemia: Preop hemoglobin 13.7 Hemoglobin is 10.5 today Likely postop anemia secondary to blood loss and dilutional from IV fluids Monitor (3) Hypertension: Blood pressure still poorly controlled Continue lisinopril 10 mg Increase hydrochlorothiazide to 25 mg daily Monitor PRN hydralazine for SBP > 170 Optimize pain control post-operatively - difficult in setting of patient's dementia. Scheduled Tylenol, monitor closely for signs of pain such as grimacing, moaning or restlessness (4) Paroxysmal SVT (supraventricular tachycardia): History of tachyarrhythmia in the past. Had LINQ monitor placed - most recent LINQ interrogation do not detect any dysrhythmias Not currently on any medication Follows with Dr. Baldwin of [place] [facility] - seen for pre-op eval (5) CKD (chronic kidney disease) stage 3, GFR 30-59 ml/min: Baseline Cr ~1. Monitor renal function with daily BMP (6) Anxiety: Continue Buspar Mood stable (7) Dementia: care provider. Has not tolerated Aricept or Namenda (8) GERD (gastroesophageal reflux disease): Continue PPI PCP: NEIL Rincon Dispo: Per primary service Admission and Anticipated Discharge Date Admission Date: September 02, 2020 Subjective Patient seen and examined Patient reports pain at surgical site. Denies other complaints Physical Exam Constitutional: + well hydrated; no acute distress Elderly woman Eyes: PERRL, conjunctivae normal, anicteric sclerae ENMT: external ear and nose normal, oropharynx normal Respiratory: normal respiratory effort, lungs clear to auscultation Cardiovascular: Rate/Rhythm: regular rate and regular rhythm Gastrointestinal (Abdomen): normal bowel sounds, soft, nontender, no hepatosplenomegaly Musculoskeletal: Clean dressing over surgical site, lower back Neurologic: PERRL, EOMI, accommodation nl, no face palsy, no dysarthria Psychiatric: Alert, oriented to person, knows that she is in the hospital but does not know which. Not oriented to time. Results & Data Results & Data ([facility]) Vital Signs (Past 12 Hours) Vital Signs Temp Pulse Resp BP BP Pulse Ox 09/04/20 08:00 36.6 C 86 18 146/78 H 93 09/04/20 07:20 36.8 C 86 16 146/78 H 93 Laboratory Results Laboratory Results - last 24 hr 09/04/20 09/04/20 09/04/20 05:25 07:05 07:05 WBC 14.24 H RBC 3.53 L Hgb 10.4 L Hct 32.0 L MCV 90.7 MCH 29.5 MCHC 32.5 RDW Std Deviation 43.5 RDW Coeff of Annemarie 13.3 Plt Count 191 MPV 10.3 Sodium 137 Potassium 3.7 Chloride 104 Carbon Dioxide 25 Anion Gap 8.0 BUN 12 Creatinine 0.87 Est Cr Clr Drug Dosing 40.9 Est GFR ( Amer) 73.4 Est GFR (Non-Af Amer) 63.4 BUN/Creatinine Ratio 13.7 Glucose 119 H Calcium 8.7 Urine Color Yellow Urine Appearance Clear Urine pH 5.5 Ur Specific [place] 1.014 Urine Protein Negative Urine Glucose (UA) Negative Urine Ketones Trace H Urine Blood Negative Urine Nitrite Negative Urine Bilirubin Negative Urine Urobilinogen Negative Ur Leukocyte Esterase Negative
[2020-09-04] MEDS: LORazepam 0.5 MG TAB PO PRN (14:07)
[2020-09-04] MEDS: oxyCODONE HCL IR 5 MG TAB (IMMEDIATE RELEASE) PO PRN (16:33)
[2020-09-04] MEDS ORDERED: hydroCHLOROthiazide 25 MG TAB PO STA (17:46)
[2020-09-04] MEDS: bisacodyL 5 MG TABEC PO SCH (22:01)
[2020-09-04] MEDS: DOCUSATE SODIUM/SENNA 50/8.6MG TAB PO SCH (22:08)
[2020-09-04] MEDS: DOCUSATE SODIUM 100 MG CAP PO SCH (22:08)
[2020-09-05] MEDS: POLYETHYLENE (MIRALAX) 17 GM PACK PO SCH ×2 (01:09→05:40)
[2020-09-05] MEDS: traMADol HCL 50 MG TABLET PO PRN (05:42)
[2020-09-05] MEDS: ACETAMINOPHEN 500 MG TAB PO SCH (05:42)
[2020-09-05 07:17] LABS: Hematocrit (blood only) 33.4 % (37-47); Hemoglobin 10.8 g/dL (12.0-16.0); Mean Corpuscular Hemoglobin 29.3 pg (25-34); Mean Corpuscular Hgb Conc 32.3 g/dL (32-36); Mean Corpuscular Volume 90.8 fL (80-100); Mean Platelet Volume 10.4 fL (7.4-10.4); Platelet Count 209 K/uL (130-400); RDW Coefficient of Variation 13.3 % (11.5-14.5); RDW Standard Deviation 44.1 fL (36.4-46.3); Red Blood Count 3.68 M/uL (4.2-5.4); White Blood Count 14.32 K/uL (4.8-10.8)
[2020-09-05] MEDS: hydrALAZINE HCL 20 MG/ML VIAL IV PRN (07:31)
[2020-09-05 07:53] LABS: BUN Creatinine Ratio 16.4 (10-20); Calcium 9.4 mg/dl (8.5-10.1); Creatinine Clr Calc Pharmacy 36.3 ml/min; Est GFR (African American) 63.6; Est GFR (Non-African American) 54.9; Potassium 4.2 mmol/L (3.5-5.1)
[2020-09-05] MEDS ORDERED: hydroCHLOROthiazide 25 MG TAB PO SCH (09:00)
[2020-09-05] MEDS: DEXAMETHASONE SOD PHOSPHATE 6 MG in SYRINGE 0 ML IV SCH (09:35)
[2020-09-05] MEDS: busPIRone 5 MG TAB PO SCH (09:35)
[2020-09-05] MEDS: GABAPENTIN 100 MG CAP PO SCH (09:36)
[2020-09-05] MEDS: lisinopril 10 MG TAB PO SCH (10:04)
[2020-09-05] MEDS: FERROUS SULFATE 325 MG TAB PO SCH (10:04)
[2020-09-05] MEDS: PANTOprazole 40 MG TAB PO SCH (10:04)
[2020-09-05] MEDS: POTASSIUM CHLORIDE CRTAB 20 MEQ TABCR PO SCH (10:04)
[2020-09-05] MEDS: oxyCODONE HCL IR 5 MG TAB (IMMEDIATE RELEASE) PO PRN (10:07)
--- NOTE | 2020-09-05 10:59 | Discharge Summary ---
Date of Service September 05, 2020 Admission HPI Per Admitting Provider This is a 80-year-old female who presents with chronic persistent back and leg pain. After failing course of nonoperative care is here for surgical invention. Principal Diagnosis Lumbar spinal stenosis with neurogenic medication Discharge Data Allergies Allergy/AdvReac Type Severity Reaction Status Date / Time cephalexin [From Keflex] Allergy Intermediate Unknown Verified 09/02/20 06:37 Consultations 09/02/20 11:08 Consult Case Management - Discharge Planning Routine Consult Hospitalist Routine Procedures Performed Operation Date: 09/02/20 07:45 Actual Procedures p L4-L5 Decompression Fusion, Spinal Cord Monitoring(Not Applicable) - Orville Turner DO Ordered Studies 09/02/20 07:45 FL fluoroscopy <1hr Routine FL lumbar spine 2-3V Routine Hospital Course (1) Neurogenic claudication due to lumbar spinal stenosis: Patient with lumbar decompression fusion tolerated well second orthopedic for postoperative postop day 1 she was up and ambulating progressed to postop #2 on postop day #3 pain was controlled ambulating well strength intact subsequently discharged home. Discharge orders instructions from the chart for further review. Total Time Total Time Spent Total Time Spent (In Minutes): 20 minutes Discharge Plan Discharge Items Patient Disposition: Home - Self-Care Reason For Visit: Spinal Stenosis, Lumbar Region with Neurogenic Cla Discharge Diagnosis: Lumbar spinal stenosis with neurogenic claudication Activity: As commented below Non-emergency contact: Primary Care Provider Call non-emergency contact if: you have any medication questions Follow-up/Referrals: Debra Rincon CRNP [Primary Care Provider] - Diet: Regular Addtl Attending Provider Instructions: ACTIVITY RECOMMENDATIONS: SELF CARE INSTRUCTIONS AFTER THORACIC/LUMBAR FUSIONS 1. You may walk to your tolerance. It is good exercise for your legs and back. Expect some back and intermittent leg aches and pains. 2. You may perform "counter-top" level activities (make a sandwich, estrella with a project, etc.). 3. No bending or lifting of more than 10 pounds or back twisting of any nature (roll like a log when turning in bed). 4. You may ride in a car for 20-30 minutes at a time. No driving until after your first visit with your doctor. 5. Frequent changes of position and restricting sitting to 30 minutes at a time will help limit the amount of back spasms and stiffness you may experience. 6. You may discontinue the use of ambulatory aids (cane, crutches, etc.) once your strength and confidence allow. 7. You may respiratory clinician the shower and let water strike your incision when you arrive home at least once daily. Do not take a tub bath, sit in a hot tub or go into a swimming pool until after your first recheck in the office. SPECIAL CARE INSTRUCTIONS: VERY IMPORTANT TO READ AND REVIEW A. Your surgical incision has been closed with a cosmetic suture under the skin that will dissolve in about 6 weeks. In 14 days, you can use a pair of clean scissors and cut the suture that is left outside of the skin at the ends of your incision. 1. The small skin tapes can be removed 7 days after surgery if they have not fallen off by that point. 2. You may keep the wound open to air as much as possible to promote healing after post-op day number 5 unless told otherwise by your doctor. 3. If you think the wound looks like it is becoming infected (redness or wor sening drainage) and/or you are experiencing fever, chill or worsening back pain and muscle spasms, contact the office so that we may evaluate you as soon as possible. B. Complications are uncommon, but please contact us if you have any signs or symptoms of: 1. wound infection (fever higher than 102.5 degrees F, redness, separation of wound, drainage, or increasing pain from the incision) 2. blood clots in legs (pain, swelling, redness and warmth in legs) 3. urinary tract infection (fever higher than 102.5 degrees F, burning upon urination or increased frequency of urination) 4. nerve problems (inability to walk on your toes or heels, numbness, loss of bowel or bladder control) 5. any other symptoms that concern you C. Please call the office at if you have any concerns or questions about your operation or recovery. D. No smoking! Smoking drastically decreases the chance of a solid fusion. E. Do not take any anti-inflammatory medications (Indocin, Advil, Motrin, Aspirin, Naprosyn, etc.) as these may inhibit the chance of a solid fusion. Tylenol is okay to take for pain. MANAGING PAIN AFTER SPINAL SURGERY 1. Narcotic medication is intended for short-term use and will be provided for surgical pain. Surgical pain usually lasts for a period of 4-6 weeks. Narcotic medication includes Percocet, Vicodin, Darvocet, Tylenol #3 or Lortab. 2. Longer-term pain is more appropriately treated with non-narcotic medication such as Tylenol ES. 3. Muscle spasm is not appropriately treated with narcotics. Muscle relaxers such as Soma, Flexeril or Skelaxin can be used along with Tylenol ES. 4. Remember that we all live with some "aches and pains". This is not unusual or uncommon after an injury or as we get older. a. Back pain is expected and may include muscle spasms for 4 to 6 weeks after surgery. The pain should gradually improve. If the pain worsens for no apparent reason, please contact the office. b. Intermittent leg pain may also be experienced and should not be concerned about unless it worsens for no apparent reason. If so, please contact the office. 5. We will provide appropriate medication within the normal guidelines of their prescribed use. We will also be very cautious and aware of potential abuse and extended duration of patients' medication needs. a. Pain medications are for your comfort and to assist with sleep and rest so that the tissue can heal. They are not provided in order to return to normal activity and should not be used through the day. To do so or worsening pain at night can result from ongoing tissue damage and development of tolerance to the prescribed medicine. 6. Please allow 2-3 days to process refills. Prescriptions will not be mailed but must be picked up at the office. FOLLOW UP VISIT: Keep your scheduled follow-up appointment. Any questions, please call the office at . Pending Studies at Discharge: No Stand-Alone Forms: My [facility] [employer], Smoking Cessation Medications and DC Order Prescriptions: New tramadol 50 mg tablet 50 mg PO Q6H PRN (Reason: pain, moderate) Qty: 30 RF: 0 Continued buspirone 5 mg Tablet 10 mg PO BID RF: 0 acetaminophen [Tylenol 8 Hour] 650 mg Tablet Extended Release 650 mg PO BID RF: 0 pantoprazole 40 mg Tablet,Delayed Release (Dr/Ec) 40 mg PO QAM RF: 0 ferrous sulfate [iron] 325 mg (65 mg iron) Tablet 325 mg PO QAM RF: 0 lisinopril 10 mg Tablet 10 mg PO QAM RF: 0 docusate sodium [Stool Softener] 100 mg Tablet 100 mg PO PM RF: 0 Laxative (bisacodyl) 5 mg Tablet 5 mg PO HS PRN (Reason: Constipation) RF: 0 gabapentin 100 mg Tablet 100 mg PO BID RF: 0 hydrochlorothiazide 12.5 mg Tablet 12.5 mg PO QAM RF: 0 potassium chloride 20 mEq Tablet Extended Release 20 meq PO BID RF: 0 Discharge Orders: Discharge Order (Routine); Ordered 09/05/20 Ordered By: Orville Turner Admission Data Admit Date/Time: 09/02/20 09:45 Attending Provider: Orville Turner Admit Provider: Orville Turner Primary Care Provider: Debra Rincon Other Providers: Landon Tovar ; Belia Blackburn I.
--- NOTE | 2020-09-05 11:25 | Hospitalist Progress Note ---
Date of Service September 05, 2020 Assessment & Plan (1) S/P spinal surgery: 80yo F with a PMH of paroxysmal SVT, hypertension, Alzheimer's, GERD, anxiety and other medical problems listed below who is POD#2 s/p lumbar decompression and fusion L3-4 and L4-[address] Turner. Per ortho for pain control, wound care, anticoagulation and activities Surgical drain has been removed (2) Anemia: Preop hemoglobin 13.7 Hemoglobin remains stable in 10s Likely postop anemia secondary to blood loss and dilutional from IV fluids Monitor (3) Hypertension: Blood pressure still poorly controlled Continue lisinopril 10 mg Continue hydrochlorothiazide 25mg on discharge. Pain control Follow up with PCP. If still poorly controlled, can increase lisinopril (4) Paroxysmal SVT (supraventricular tachycardia): History of tachyarrhythmia in the past. Had LINQ monitor placed - most recent LINQ interrogation do not detect any dysrhythmias Not currently on any medication Follows with Dr. Baldwin of [place] - seen for pre-op eval (5) CKD (chronic kidney disease) stage 3, GFR 30-59 ml/min: Baseline Cr ~1. Monitor renal function with daily BMP (6) Anxiety: Continue Buspar Mood stable (7) Dementia: care provider. Has not tolerated Aricept or Namenda (8) GERD (gastroesophageal reflux disease): Continue PPI PCP: NEIL Rincon Dispo: Per primary service Admission and Anticipated Discharge Date Admission Date: September 02, 2020 Subjective Patient seen and examined Reports pain is getting better controlled Denied any other complaints Patient is demented, has limited insight and anxious to go home Review of Systems Review of Systems: All systems reviewed & are unremarkable except as noted in Subjective Physical Exam Constitutional: + well hydrated; no acute distress Eyes: PERRL, conjunctivae normal, anicteric sclerae ENMT: external ear and nose normal, oropharynx normal Respiratory: normal respiratory effort, lungs clear to auscultation Cardiovascular: Rate/Rhythm: regular rate and regular rhythm S1 S2 Gastrointestinal (Abdomen): normal bowel sounds, soft, nontender, no hepatosplenomegaly Musculoskeletal: Clean dressing over lower back Neurologic: PERRL, EOMI, accommodation nl, no face palsy, no dysarthria Psychiatric: Orientation: alert and oriented to person Results & Data Results & Data ([facility]) Vital Signs (Past 12 Hours) Vital Signs Temp Pulse Resp BP Pulse Ox 09/05/20 10:09 89 184/74 H 09/05/20 07:18 36.7 C 81 18 194/76 H 96 Laboratory Results Laboratory Results - last 24 hr 09/05/20 09/05/20 09/05/20 06:57 06:57 08:48 WBC 14.32 H RBC 3.68 L Hgb 10.8 L Hct 33.4 L MCV 90.8 MCH 29.3 MCHC 32.3 RDW Std Deviation 44.1 RDW Coeff of Annemarie 13.3 Plt Count 209 MPV 10.4 Sodium 134 L Potassium 4.2 Chloride 101 Carbon Dioxide 28 Anion Gap 5.0 BUN 16 Creatinine 0.98 Est Cr Clr Drug Dosing 36.3 Est GFR ( Amer) 63.6 Est GFR (Non-Af Amer) 54.9 BUN/Creatinine Ratio 16.4 Glucose 119 H POC Glucose 109 H Calcium 9.4
== END 2020-09-05 12:40 | disposition home or self-care (01) | DRG 454 ==
LOC: ASU 06:09 → 3W 09:45

== ENCOUNTER 2020-09-13 08:31 | Inpatient (IN) ==
[2020-09-13] MEDS ORDERED: HYDROmorphone INJ 0.5 MG/0.5 ML SYR IV STA (08:45)
[2020-09-13] MEDS ORDERED: SODIUM CHLORIDE 0.9% 500 ML IV ONE ×2 (08:45→09:50)
[2020-09-13] MEDS ORDERED: LABETALOL HCL IV 5 MG/ML 20ML IV STA (08:45)
--- NOTE | 2020-09-13 08:50 | Emergency Department Note ---
Impression & Plan Post-operative pain, Acute low back pain with left-sided sciatica, Intractable back pain ED Provider Note Name: LORI VANCE Age: 80 Sex: F Arrives Via: Walk-In Informant: Patient, ED Provider: Vince Núñez MD Chief Complaint: low back pain Impression: Post-Operative Pain Acute low back pain with left sided sciatica Intractable back pain Medical Decision Makin yr old female with dementia who had spinal surgery last week, seen by me yest farrah in ED for pain back. Attempted treating pain at home with increased pain meds after discussing with her surgeon, however this morning pain too much and returned to ED. She has no neuro deficits on exam once again. Given IV dilaudid with improvement in pain. Labs stable. Imaging orderer per vicky which is concerning for shifting of hardware. Surgeon in to evaluated and hospitalize. Prior Medical Record and Triage/Nursing Notes reviewed by Me Additional history obtained from chart and Differentials:Infection, seroma, post op pain, sciatica, epidural bleed, cauda equina, hardware failure, muscular pain amongst other pathologies. Vital Signs: reviewed and remarkable for HTN Interventions: dilaudid 0.5mg IV, labetalol 5mg IV Labs:Reviewed and remarkable for no significant abnormalities (WBC similar to previous) Imaging:Radiologist interpretation reviewed by me: lumbar ap/lateral concerning for hardware movement Consults:Dr Turner - will hospitalize Plan: Disposition:Hospitalization. Condition: Good History of Present Illness:80 yr old female arrives for evaluation of back pain. Patient with lumbar back surgery on 09/02/20 who was doing well at home until a few days ago with worsening low back pain. Radiates to left hip and thigh. Worse with movement, better with rest. Using Tramadol and Oxy IR at home for pain control though no improvement after taking this morning. Was seen yesterday and doing well post IV narcotics, IV toradol, and IV decadron. She took her last of steroid taper this morning. Denies urinary control issues, has not had BM since yesterday morning though no abdominal pain, nor significant discomfort. Notes pain worse with movement, but denies actual weakness. No fall, trauma, injury at home. Denies fevers, chills, cp, sob, nausea, vomiting, nor other symptoms. ROS: See above HPI for pertinent positives & negatives. A total of 10 systems reviewed and were otherwise negative. Past Medical History:See Below Past Surgical History:See Below Family History:See Below Social History:See Below Home Medications:See Below Allergies:Keflex Vitals:Blood Pressure: 202/76, Pulse 6, RR 18, T 37.1C, O2 97% on RA Physical Exam: GENERAL: Patient is uncomfortable appearing and in moderate distress. EYES: No scleral icterus, unremarkable pupils. ENT: Mucous membranes moist, no nasal congestion. NECK: No masses appreciated, nomeningismus, trachea is midline. RESPIRATORY: No dyspnea. Clear to auscultation and equal bilaterally. No wheeze, no rhonchi. CARDIOVASCULAR: Regular rate and rhythm.No murmurs, rubs, gallops appreciated. GASTROINTESTINAL: Abdomen soft, non-tender, no peritonitis.Bowel sounds positive.No masses appreciated. BACK: No midline tenderness, no CVA tenderness EXTREMITIES: Severe pain with movement of left leg, otherwise good pulses, leslie l motion all extremities, no cyanosis, no edema. NEUROLOGIC: Alert and oriented, no acute motor or sensory deficits, no focal weakness, cranial nerves grossly intact. SKIN: Bruising of left buttock to lateral thigh. No rash, no jaundice, no diaphoresis. PSYCH: Appropriate GCS: 15 ED Course: Times/Reassessments: feeling better with dilaudid, bp trending down, still quite some pain with movement thus surgeon in to see Vince Núñez MD Past Med/Surg History Medical History (Updated 09/13/20 @ 14:12 by Vince Núñez MD) Anxiety CKD (chronic kidney disease) stage 3, GFR 30-59 ml/min Dementia HX PROVIDED BY PT'S Depression GERD (gastroesophageal reflux disease) MILD AND OCC History of cardiac monitoring HAS LOOP RECORDER IN PLACE /RIGHT CHEST. FOLLOWS [facility]/ DUE TO SYNCOPAL EPISODES IN PAST- LOOP RECORDER PLACED IN 2018- NO RECENT SYNCOPE EPISODES History of ileus NO RECENT ISSUES Hypertension Paroxysmal SVT (supraventricular tachycardia) Per records Surgical History (Updated 09/02/20 @ 13:20 by Diana Weir PA-C) History of adenoidectomy History of cholecystectomy History of colonoscopy History of esophagogastroduodenoscopy (EGD) History of hysterectomy History of tonsillectomy History of tooth extraction Family History Other Arthritis Heart disease Social History Smoking Status: Never smoker Second Hand Exposure: Yes ( KID); Hx Alcohol Use: No Hx Substance Use: No Preferred Language: Arabic Communication Ability: Effective Furniture Delivery Driver Required: No Beliefs That Will Affect Care: None Current Living Situation: Spouse Other Information That Helps Us Care for You: No Feels Safe at Home: Yes Assistive Devices: Walker Allergies Allergies Allergy/AdvReac Type Severity Reaction Status Date / Time cephalexin [From Keflex] Allergy Intermediate Unknown Verified 09/13/20 09:07 Home Meds Home Medications Medication Instructions Recorded Confirmed Laxative (bisacodyl) 5 mg PO HS PRN 08/18/20 09/13/20 acetaminophen [Tylenol 8 Hour] 650 mg PO BID 08/18/20 09/13/20 buspirone 10 mg PO BID 08/18/20 09/13/20 docusate sodium [Stool Softener] 100 mg PO PM 08/18/20 09/13/20 ferrous sulfate [iron] 325 mg PO QAM 08/18/20 09/13/20 lisinopril 10 mg PO QAM 08/18/20 09/13/20 pantoprazole 40 mg PO QAM 08/18/20 09/13/20 potassium chloride 20 meq PO BID 08/18/20 09/13/20 gabapentin 100 mg PO DAILY 09/12/20 09/13/20 methylprednisolone 4 mg PO UD 09/12/20 09/13/20 Previous Rx's Medication Instructions Recorded tramadol 50 mg PO Q6H PRN #30 tab 09/03/20 hydrochlorothiazide 25 mg PO QAM #30 tab 09/05/20 lidocaine 1 patch TOPICAL DAILY #15 ea 09/12/20 oxycodone 2.5 - 5 mg PO Q6H PRN #12 tab 09/12/20 Results & Data (ED) Vital Signs Vital Signs - 24 hr 09/13/20 08:33 09/13/20 08:52 09/13/20 09:23 Temperature 37.1 C Temperature Source Temporal Artery Scan Pulse Rate 66 Pulse Rate [Right Finger] 70 56 L Respiratory Rate 18 20 22 Respiratory Effort / Characteristics Non-Labored Spontaneous Respiratory Depth Normal Respiratory Pattern Regular Blood Pressure 202/76 H Blood Pressure [Right Arm] 185/78 H 189/89 H Blood Pressure Mean 118 Blood Pressure Mean [Right Arm] 113 122 Blood Pressure Position Sitting Pulse Oximetry 97 98 100 Oxygen Delivery Method Room Air Room Air Room Air Sepsis Recent Fever Within 48 Hours No Sepsis New/Unexplained Change in Mental Status N/A Sepsis Action Taken by Nursing No Action Required 09/13/20 10:15 Temperature Temperature Source Pulse Rate Pulse Rate [Right Finger] 62 Respiratory Rate 20 Respiratory Effort / Characteristics Respiratory Depth Respiratory Pattern Blood Pressure Blood Pressure [Right Arm] 197/87 H Blood Pressure Mean Blood Pressure Mean [Right Arm] 123 Blood Pressure Position Pulse Oximetry 100 Oxygen Delivery Method Room Air Sepsis Recent Fever Within 48 Hours Sepsis New/Unexplained Change in Mental Status Sepsis Action Taken by Nursing Laboratory Data Result diagrams: 09/13/20 08:56 09/13/20 08:56 Lab Results 09/13/20 09/13/20 Range/Units 08:56 08:56 WBC 15.50 H (4.8-10.8) K/uL RBC 3.92 L (4.2-5.4) M/uL Hgb 11.4 L (12.0-16.0) g/dL Hct 35.5 L (37-47) % MCV 90.6 (80-100) fL MCH 29.1 (25-34) pg MCHC 32.1 (32-36) g/dL RDW Std Deviation 43.2 (36.4-46.3) fL RDW Coeff of Annemarie 13.2 (11.5-14.5) % Plt Count 464 H (130-400) K/uL MPV 9.3 (7.4-10.4) fL Immature Gran % (Auto) 0.5 % Neut % (Auto) 74.0 % Lymph % (Auto) 14.1 % [place] % (Auto) 11.2 % Eos % (Auto) 0.1 % Baso % (Auto) 0.1 % Neut # (Auto) 11.46 H (1.4-6.5) K/uL Lymph # (Auto) 2.19 (1.2-3.4) K/uL [place] # (Auto) 1.74 H (0.11-0.59) K/uL Eos # (Auto) 0.01 (0-0.5) K/uL Baso # (Auto) 0.02 (0-0.2) K/uL Immature Gran # (Auto) 0.08 H (0.00-0.02) K/uL Sodium 136 (136-145) mmol/L Potassium 4.3 D (3.5-5.1) mmol/L Chloride 104 (98-107) mmol/L Carbon Dioxide 27 (21-32) mmol/L Anion Gap 5.0 (3-11) BUN 31 H D (7-18) mg/dl Creatinine 1.16 (0.6-1.2) mg/dl Est Cr Clr Drug Dosing 29.7 ml/min Est GFR ( Amer) 51.9 Est GFR (Non-Af Amer) 44.7 BUN/Creatinine Ratio 27.1 H (10-20) Glucose 103 H (70-99) mg/dl Calcium 9.3 (8.5-10.1) mg/dl Administered Medications Discontinued Medications Hydromorphone HCl (Hydromorphone Inj 0.5 Mg/0.5 Ml Syr) 0.5 mg IV NOW STA Stop: 09/13/20 08:46 Last Admin: 09/13/20 08:58 Dose: 0.5 mg Documented by: [id number] Sodium Chloride (Nss) 500 mls @ 999 mls/hr IV .Q31M ONE Stop: 09/13/20 09:15 Last Infusion: 09/13/20 10:26 Dose: 0 mls/hr Documented by: [id number] Admin: 09/13/20 09:03 Dose: 999 mls/hr Documented by: [id number] Sodium Chloride (Nss) 500 mls @ 999 mls/hr IV .Q31M ONE Stop: 09/13/20 10:20 Last Infusion: 09/13/20 11:06 Dose: 0 mls/hr Documented by: [id number] Admin: 09/13/20 10:33 Dose: 999 mls/hr Documented by: [id number] Labetalol HCl (Labetalol Hcl Iv 5 Mg/Ml 20ml) 5 mg IV NOW STA Stop: 09/13/20 08:46 Last Admin: 09/13/20 09:02 Dose: 5 mg Documented by: [id number] Cosigned by: [id number] Discharge Plan Visit Data Chief Complaint: Back Injury/Pain Stated Complaint: POST BACK OPERATION CAN HARDLY WALK ED Provider: Vince Núñez Discharge Problem: Post-operative pain, Acute low back pain with left-sided sciatica, Intractable back pain Discharge Problem: Acute low back pain with left-sided sciatica Qualifiers: Back pain laterality: left Qualified Code(s): M54.42 - Lumbago with sciatica, left side
[2020-09-13 09:21] LABS: Basophils # (auto) 0.02 K/uL (0-0.2); Basophils % (auto) 0.1 %; Eosinophils # (auto) 0.01 K/uL (0-0.5); Eosinophils % (auto) 0.1 %; Hematocrit (blood only) 35.5 % (37-47); Hemoglobin 11.4 g/dL (12.0-16.0); Immature Granulocytes # (auto) 0.08 K/uL (0.00-0.02); Immature Granulocytes % (auto) 0.5 %; Lymphocytes # (auto) 2.19 K/uL (1.2-3.4); Lymphocytes % (auto) 14.1 %; Mean Corpuscular Hemoglobin 29.1 pg (25-34); Mean Corpuscular Hgb Conc 32.1 g/dL (32-36); Mean Corpuscular Volume 90.6 fL (80-100); Mean Platelet Volume 9.3 fL (7.4-10.4); Monocytes # (auto) 1.74 K/uL (0.11-0.59); Monocytes % (auto) 11.2 %; Neutrophils # (auto) 11.46 K/uL (1.4-6.5); Platelet Count 464 K/uL (130-400); RDW Coefficient of Variation 13.2 % (11.5-14.5); RDW Standard Deviation 43.2 fL (36.4-46.3); Red Blood Count 3.92 M/uL (4.2-5.4)
[2020-09-13] MEDS ORDERED: HYDROmorphone INJ 0.5 MG/0.5 ML SYR IV PRN ×2 (09:37→12:15)
[2020-09-13 09:47] LABS: BUN Creatinine Ratio 27.1 (10-20); Calcium 9.3 mg/dl (8.5-10.1); Creatinine Clr Calc Pharmacy 29.7 ml/min; Est GFR (African American) 51.9; Est GFR (Non-African American) 44.7; Potassium 4.3 mmol/L (3.5-5.1)
--- NOTE | 2020-09-13 10:45 | History & Physical Report ---
Date of Service September 13, 2020 Assessment & Plan (1) Post-operative pain: Admission and Anticipated Discharge Date Admission Date: This time I think she is experiencing normal postoperative discomfort. She is unable to manage herself at home. I will admitted the hospital for physical therapy and pain management. I suspect she will be able to discharge home the next day or so. History of Present Illness Chief Complaint: Back pain Primary Care Provider: NEIL Bowser This is a 80-year-old female known to me status post lumbar decompression fusion. Overall she is done very nicely but over the past 48 hours has had increasing left-sided lumbar back pain. No radicular complaints no loss of bowel bladder control no fevers chills nausea vomiting. Allergies Allergy/AdvReac Type Severity Reaction Status Date / Time cephalexin [From Keflex] Allergy Intermediate Unknown Verified 09/13/20 09:07 Home Medications Medication Instructions Recorded Confirmed Type Laxative (bisacodyl) 5 mg PO HS PRN 08/18/20 09/13/20 History acetaminophen [Tylenol 8 Hour] 650 mg PO BID 08/18/20 09/13/20 History buspirone 10 mg PO BID 08/18/20 09/13/20 History docusate sodium [Stool Softener] 100 mg PO PM 08/18/20 09/13/20 History ferrous sulfate [iron] 325 mg PO QAM 08/18/20 09/13/20 History lisinopril 10 mg PO QAM 08/18/20 09/13/20 History pantoprazole 40 mg PO QAM 08/18/20 09/13/20 History potassium chloride 20 meq PO BID 08/18/20 09/13/20 History tramadol 50 mg PO Q6H PRN #30 tab 09/03/20 09/13/20 Rx hydrochlorothiazide 25 mg PO QAM #30 tab 09/05/20 09/13/20 Rx gabapentin 100 mg PO DAILY 09/12/20 09/13/20 History lidocaine 1 patch TOPICAL DAILY #15 ea 09/12/20 09/13/20 Rx methylprednisolone 4 mg PO UD 09/12/20 09/13/20 History oxycodone 2.5 - 5 mg PO Q6H PRN #12 tab 09/12/20 09/13/20 Rx Past Med/Surg History Medical History (Updated 09/12/20 @ 12:52 by Vince Núñez MD) Anxiety CKD (chronic kidney disease) stage 3, GFR 30-59 ml/min Dementia HX PROVIDED BY PT'S Depression GERD (gastroesophageal reflux disease) MILD AND OCC History of cardiac monitoring HAS LOOP RECORDER IN PLACE /RIGHT CHEST. FOLLOWS [facility]/ DUE TO SYNCOPAL EPISODES IN PAST- LOOP RECORDER PLACED IN 2018- NO RECENT SYNCOPE EPISODES History of ileus NO RECENT ISSUES Hypertension Paroxysmal SVT (supraventricular tachycardia) Per records Surgical History (Updated 09/02/20 @ 13:20 by Diana Weir PA-C) History of adenoidectomy History of cholecystectomy History of colonoscopy History of esophagogastroduodenoscopy (EGD) History of hysterectomy History of tonsillectomy History of tooth extraction Family History Other Arthritis Heart disease Social History Smoking Status: Never smoker Second Hand Exposure: Yes ( KID); Hx Alcohol Use: No Hx Substance Use: No Preferred Language: Tajik Communication Ability: Effective Public Health Specialist Required: No Beliefs That Will Affect Care: None Current Living Situation: Spouse Other Information That Helps Us Care for You: No Feels Safe at Home: Yes Assistive Devices: Walker Physical Exam Physical Exam: Patient's incision is clean dry and intact. There are no erythema no drainage. She has marked tenderness palpation of the left-sided paravertebral musculature. No sciatic notch discomfort. Excellent strength testing lower extremities. Results & Data ([facility]) Vital Signs (Past 12 Hours) Vital Signs Temp Pulse Pulse Resp BP BP Pulse Ox 09/13/20 10:15 62 20 197/87 H 100 09/13/20 09:23 56 L 22 189/89 H 100 09/13/20 08:52 70 20 185/78 H 98 09/13/20 08:33 37.1 C 66 18 202/76 H 97
--- NOTE | 2020-09-13 11:38 | XRay Report ---
LUMBAR SPINE 3 VIEWS CLINICAL HISTORY: Bilateral hip pain status post lumbar spine surgery. FINDINGS: 3 views of the lumbar spine are correlated with MRI of lumbar spine dated 06/26/2020 and i ntraoperative radiograph dated 09/02/2020. The skeletal structures are osteopenic. There is no radiog raphic evidence of fracture or malalignment. Vertebral body height is maintained. There is postoperat robert change from laminectomy and posterior fusion at L4-L5. The orthopedic hardware appears intact. Th ere is 1.5 cm of anterolisthesis at L4-L5 which is increased from the intraoperative radiograph dated 09/02/2020. Additionally, the disc spacer at L4-L5 has shifted posteriorly as compared to previous. Alignment is otherwise preserved. There is moderate to advanced disc space narrowing at L1-L2 and L5- S1 with associated endplate sclerosis. The transverse processes appear intact. Anterior and lateral m arginal osteophytes are seen throughout. There is mild to moderate lumbar levocurvature. The visualiz ed bony pelvis appears intact. There is a nonobstructed abdominal bowel gas pattern. Cholecystectomy clips are seen in the right upper quadrant. IMPRESSION: 1. No acute fracture is identified involving the lumbar spine. 2. There is postoperative change from laminectomy and posterior fusion at L4-L5. 3. There is increasing anterolisthesis at L4-L5 as compared to the 09/02/2020 intraoperative images. Additionally, the disc spacer at L4-L5 has shifted posteriorly from previous. Follow-up with the [facility] orthopedic surgeon is recommended. ACT 112: Negative or not required by law. Electronically signed by: Chace Delgado M.D. 09/13/2020 11:36 AM
[2020-09-13] MEDS ORDERED: ONDANSETRON 4 MG OD TAB PO PRN (12:15)
[2020-09-13] MEDS ORDERED: ONDANSETRON INJ 2 MG/ML 2 ML VIAL IV PRN (12:15)
[2020-09-13] MEDS ORDERED: NON-FORMULARY MEDICATION (Methylprednisolone 4 mg tablets,dose pack) PO SCH (12:15)
[2020-09-13] MEDS ORDERED: METOCLOPRAMIDE HCL INJ 5 MG/ML 2 ML VIAL IV PRN (12:15)
[2020-09-13] MEDS ORDERED: PROMETHAZINE HCL 12.5 MG in SODIUM CHLORIDE 0.9% 50 ML IV PRN (12:15)
[2020-09-13] MEDS ORDERED: ACETAMINOPHEN 325 MG TAB PO PRN (12:15)
[2020-09-13] MEDS: dexAMETHasone 8 MG in SYRINGE 0 ML IV SCH (14:10)
[2020-09-13] MEDS: LACTATED RINGER'S 1,000 ML IV SCH (14:10)
[2020-09-13] MEDS: LORazepam 1 MG/2 ML VIAL IV PRN (14:11)
--- NOTE | 2020-09-13 15:29 | Hospitalist Consultation ---
Date of Consultation September 13, 2020 Assessment & Plan (1) Post-operative pain: s/p lumbar decompression and fusion L3-4 and L4-[address] Turner on 09/02/20 Continue pain control as per ortho On dexamethasone as per ortho Continue PT/OT Pain management consulted Hypertension: BP elevated Continue lisinopril 10 mg and hydrochlorothiazide 25mg Continue Hydralazine IV prn Continue monitor BP Paroxysmal SVT (supraventricular tachycardia): History of tachyarrhythmia in the past. Had LINQ monitor placed - most recent LINQ interrogation do not detect any dysrhythmias Not currently on any medication Follows with Dr. Baldwin of [place] [facility] CKD (chronic kidney disease) stage 3, GFR 30-59 ml/min: Creatinine 1.1, Baseline Cr ~1. Monitor renal function with daily BMP Anxiety: Continue Buspar Mood stable Dementia: Has not tolerated Aricept or Namenda GERD (gastroesophageal reflux disease): Continue PPI DVT px on SCD CODE STATUS FULL CODE History of Present Illness Reason for Consultation: Medical Management Attending Physician: Orville Turner, DO History of Present Illness 80yo F with a PMH of paroxysmal SVT, hypertension, Alzheimer's, GERD, anxiety, s/p lumbar decompression and fusion L3-4 and L4-[address] Turner on 09/02/20 came to the ER since she has been having alot of pain and unable to care for herself. 1 to 1 sitter at bed side. Pt said that her pain is worst when she moves. She said that she has not been taking pain medicine because she does not like to take it. Currently she said that she feels ok. Denies any chest pain, palpitation, dizziness and SOB. Allergies Allergy/AdvReac Type Severity Reaction Status Date / Time cephalexin [From Keflex] Allergy Intermediate Unknown Verified 09/13/20 09:07 Home Medications Medication Instructions Recorded Confirmed Type Laxative (bisacodyl) 5 mg PO HS PRN 08/18/20 09/13/20 History acetaminophen [Tylenol 8 Hour] 650 mg PO BID 08/18/20 09/13/20 History buspirone 10 mg PO BID 08/18/20 09/13/20 History docusate sodium [Stool Softener] 100 mg PO PM 08/18/20 09/13/20 History ferrous sulfate [iron] 325 mg PO QAM 08/18/20 09/13/20 History lisinopril 10 mg PO QAM 08/18/20 09/13/20 History pantoprazole 40 mg PO QAM 08/18/20 09/13/20 History potassium chloride 20 meq PO BID 08/18/20 09/13/20 History tramadol 50 mg PO Q6H PRN #30 tab 09/03/20 09/13/20 Rx hydrochlorothiazide 25 mg PO QAM #30 tab 09/05/20 09/13/20 Rx gabapentin 100 mg PO DAILY 09/12/20 09/13/20 History lidocaine 1 patch TOPICAL DAILY #15 ea 09/12/20 09/13/20 Rx methylprednisolone 4 mg PO UD 09/12/20 09/13/20 History oxycodone 2.5 - 5 mg PO Q6H PRN #12 tab 09/12/20 09/13/20 Rx Patient History Medical History (Updated 09/13/20 @ 14:12 by Vince Núñez MD) Anxiety CKD (chronic kidney disease) stage 3, GFR 30-59 ml/min Dementia HX PROVIDED BY PT'S Depression GERD (gastroesophageal reflux disease) MILD AND OCC History of cardiac monitoring HAS LOOP RECORDER IN PLACE /RIGHT CHEST. FOLLOWS [facility]/ DUE TO SYNCOPAL EPISODES IN PAST- LOOP RECORDER PLACED IN 2018- NO RECENT SYNCOPE EPISODES History of ileus NO RECENT ISSUES Hypertension Paroxysmal SVT (supraventricular tachycardia) Per records Surgical History (Updated 09/02/20 @ 13:20 by Diana Weir PA-C) History of adenoidectomy History of cholecystectomy History of colonoscopy History of esophagogastroduodenoscopy (EGD) History of hysterectomy History of tonsillectomy History of tooth extraction Family History Other Arthritis Heart disease Social History Smoking Status: Never smoker Second Hand Exposure: Yes ( KID); Hx Alcohol Use: No Hx Substance Use: No Preferred Language: Japanese Communication Ability: Effective Reserves Clerk Required: No Beliefs That Will Affect Care: None Current Living Situation: Spouse Other Information That Helps Us Care for You: No Feels Safe at Home: Yes Assistive Devices: Walker Review of Systems Review of Systems: All systems reviewed & are unremarkable except as noted in HPI & below Physical Exam Physical Exam: General- No acute distress Head- atraumatic Eyes- PERRL, EOMI, ENT- oropharynx clear Neck- supple, no JVD Lungs- clear to auscultation Heart- regular rhythm; no murmur Abdomen- normal bowel sounds, soft, nontender Extremities- no calf tenderness Neuro- alert, oriented, PERRL, EOMI; no facial palsy; no dysarthria Skin- warm & dry Results & Data Results & Data ([facility]) Vital Signs (Past 12 Hours) Vital Signs Temp Pulse Pulse Resp BP BP BP 09/13/20 14:48 36.6 C 68 18 173/74 H 09/13/20 11:52 36.4 C L 72 16 197/77 H 09/13/20 11:35 64 20 189/99 H 09/13/20 11:07 99 H 20 219/107 H 09/13/20 10:15 62 20 197/87 H 09/13/20 09:23 56 L 22 189/89 H 09/13/20 08:52 70 20 185/78 H 09/13/20 08:33 37.1 C 66 18 202/76 H Pulse Ox 09/13/20 14:48 98 09/13/20 11:52 100 09/13/20 11:35 99 09/13/20 11:07 98 09/13/20 10:15 100 09/13/20 09:23 100 09/13/20 08:52 98 09/13/20 08:33 97
[2020-09-13] MEDS: traMADol HCL 50 MG TABLET PO PRN (16:21)
[2020-09-13] MEDS ORDERED: hydrALAZINE HCL 20 MG/ML VIAL IV PRN (17:15)
[2020-09-13] MEDS: oxyCODONE HCL IR 5 MG TAB (IMMEDIATE RELEASE) PO PRN (20:57)
[2020-09-13] MEDS: DOCUSATE SODIUM 100 MG CAP PO SCH (20:57)
[2020-09-13] MEDS: ACETAMINOPHEN 325 MG TAB PO SCH (20:57)
[2020-09-13] MEDS: busPIRone 5 MG TAB PO SCH (20:58)
[2020-09-13] MEDS: POTASSIUM CHLORIDE CRTAB 20 MEQ TABCR PO SCH (20:59)
[2020-09-14] MEDS: LORazepam 1 MG TAB PO PRN ×4 (00:27→20:30)
[2020-09-14] MEDS: traMADol HCL 50 MG TABLET PO PRN ×3 (00:27→20:30)
[2020-09-14] MEDS: oxyCODONE HCL IR 5 MG TAB (IMMEDIATE RELEASE) PO PRN ×2 (04:32→17:20)
[2020-09-14] MEDS: dexAMETHasone 8 MG in SYRINGE 0 ML IV SCH (09:13)
[2020-09-14] MEDS: ACETAMINOPHEN 325 MG TAB PO SCH ×2 (09:14→20:29)
[2020-09-14] MEDS: POTASSIUM CHLORIDE CRTAB 20 MEQ TABCR PO SCH ×2 (09:14→20:30)
[2020-09-14] MEDS: lisinopril 10 MG TAB PO SCH (09:14)
[2020-09-14] MEDS: GABAPENTIN 100 MG CAP PO SCH (09:15)
[2020-09-14] MEDS: PANTOprazole 40 MG TAB PO SCH (09:15)
[2020-09-14] MEDS: busPIRone 5 MG TAB PO SCH ×2 (09:15→20:29)
[2020-09-14] MEDS: FERROUS SULFATE 325 MG TAB PO SCH (09:15)
[2020-09-14] MEDS: hydroCHLOROthiazide 25 MG TAB PO SCH (09:15)
--- NOTE | 2020-09-14 11:07 | Orthopedic Progress Note ---
Date of Service September 14, 2020 Assessment & Plan (1) Post-operative pain: Admission and Anticipated Discharge Date Admission Date: September 13, 2020 X-rays taken yesterday do demonstrate migration of hardware particularly her interbody cage posteriorly. We will going to obtain a CAT scan lumbar spine assess the hardware. We may need to consider revision. Subjective Patient states her pain is improved. She has been up and ambulating this morning. Physical Exam Physical Exam: On exam she has good strength testing. She appears comfortable. Results & Data ([facility]) Vital Signs (Past 12 Hours) Vital Signs Temp Pulse Resp BP BP Pulse Ox 09/14/20 09:12 36.5 C 61 18 171/84 H 99 09/13/20 23:17 36.2 C L 64 16 155/77 H 96
--- NOTE | 2020-09-14 12:05 | CT Scan Report ---
LUMBAR SPINE CT CT DOSE: 256.16 mGy.cm HISTORY: Low back pain TECHNIQUE: Multiaxial CT images of the lumbar spine were performed and reformatted in the sagittal an d coronal plane without the use of contrast. A dose lowering technique was utilized adhering to the principles of ALARA. COMPARISON: Lumbar spine 09/13/2020. FINDINGS: Mild S-shaped scoliosis of the lumbar spine. Visualized sacrum appears intact. 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 The hardware appears intact. Small peripro sthetic fracture surrounding the right L5 pedicle screw which involves the right side of the L5 verte bral body, pedicle, and right transverse process. This results in mild right lateral displacement of the pedicle screw. No additional fractures within the lumbar spine. The visualized sacrum appears int act. There is 9 mm of anterolisthesis of L4 on L5 with mild right posterior displacement of the disc spacer. This extends approximately 3 mm into the right side of the central canal. There is a 1 cm exo phytic hyperdense lesion within the upper pole the left kidney. This is incompletely characterized on this noncontrast study but favors a hyperdense cyst. Severe disc space narrowing at L1-L2 and L5-S1. IMPRESSION: 1. Small periprosthetic fracture surrounding the right L5 pedicle screw which involves the right of t he L5 vertebral body, pedicle, and right transverse process. This results in mild right lateral displ acement of the pedicle screw. 2. There is 9 mm of anterolisthesis of L4 on L5 with mild right posterior displacement of the disc sp acer. 3. L4-5 posterior decompression and fusion with pedicle screws and rods. No hardware fractures identi fied. ACT 112: Negative or not required by law. Electronically signed by: Rodolfo Schulte M.D. 09/14/2020 12:04 PM
--- NOTE | 2020-09-14 16:23 | Hospitalist Progress Note ---
Date of Service September 14, 2020 Assessment & Plan (1) Post-operative pain: s/p lumbar decompression and fusion L3-4 and L4-[address] Turner on 09/02/20 Continue pain control as per ortho Continue dexamethasone as per ortho Continue PT/OT Pain management consulted Hypertension: BP elevated Continue lisinopril 10 mg and hydrochlorothiazide 25mg Continue Hydralazine IV prn Continue monitor BP Paroxysmal SVT (supraventricular tachycardia): History of tachyarrhythmia in the past. Had LINQ monitor placed - most recent LINQ interrogation do not detect any dysrhythmias Not currently on any medication Follows with Dr. Baldwin of [facility] CKD (chronic kidney disease) stage 3, GFR 30-59 ml/min: Creatinine 1.1, Baseline Cr ~1. Monitor renal function with daily BMP Anxiety: Continue Buspar Mood stable Dementia: Has not tolerated Aricept or Namenda GERD (gastroesophageal reflux disease): Continue PPI DVT px on SCD CODE STATUS FULL CODE Admission and Anticipated Discharge Date Admission Date: September 13, 2020 Subjective Pt was seen and examined Lying in bed with no distress with 1 to 1 sitter Denies any new complaint Physical Exam Physical Exam: General- No acute distress Head- atraumatic Eyes- PERRL, EOMI, ENT- oropharynx clear Neck- supple, no JVD Lungs- clear to auscultation Heart- regular rhythm; no murmur Abdomen- normal bowel sounds, soft, nontender Extremities- no calf tenderness Neuro- alert, oriented, PERRL, EOMI; no facial palsy; no dysarthria Skin- warm & dry Results & Data Results & Data ([facility]) Vital Signs (Past 12 Hours) Vital Signs Temp Pulse Resp BP BP Pulse Ox 09/14/20 13:03 76 16 153/79 H 09/14/20 09:12 36.5 C 61 18 171/84 H 99
[2020-09-14] MEDS: DOCUSATE SODIUM 100 MG CAP PO SCH (20:29)
[2020-09-15] MEDS: oxyCODONE HCL IR 5 MG TAB (IMMEDIATE RELEASE) PO PRN ×2 (02:48→18:22)
[2020-09-15] MEDS: traMADol HCL 50 MG TABLET PO PRN ×2 (05:29→23:11)
[2020-09-15] MEDS: LORazepam 1 MG TAB PO PRN ×2 (05:29→23:11)
[2020-09-15] MEDS: FERROUS SULFATE 325 MG TAB PO SCH (08:13)
[2020-09-15] MEDS: hydroCHLOROthiazide 25 MG TAB PO SCH (08:13)
[2020-09-15] MEDS: busPIRone 5 MG TAB PO SCH ×2 (08:14→20:55)
[2020-09-15] MEDS: dexAMETHasone 8 MG in SYRINGE 0 ML IV SCH (08:14)
[2020-09-15] MEDS: GABAPENTIN 100 MG CAP PO SCH (08:14)
[2020-09-15] MEDS: lisinopril 10 MG TAB PO SCH (08:14)
[2020-09-15] MEDS: PANTOprazole 40 MG TAB PO SCH (08:14)
[2020-09-15] MEDS: ACETAMINOPHEN 325 MG TAB PO SCH ×2 (08:15→20:55)
[2020-09-15] MEDS: POTASSIUM CHLORIDE CRTAB 20 MEQ TABCR PO SCH ×2 (08:15→20:55)
--- NOTE | 2020-09-15 10:15 | Orthopedic Progress Note ---
Date of Service September 15, 2020 Assessment & Plan (1) Acute low back pain with left-sided sciatica: Admission and Anticipated Discharge Date Admission Date: September 13, 2020 CAT scan imaging confirmed function suspicion she has a fracture of the L5 vertebral body and migration of implants. I have discussed this with her . We will plan for removal of hardware tomorrow with extension of fusion from L3-S1. Risk benefits pros cons alternatives were outlined in detail with the . She was made n.p.o. after midnight. Subjective Patient complaining of significant back pain just a hint of left sciatica but no right leg pain. She is in the chair at the bedside. Physical Exam Physical Exam: On exam she is in obvious discomfort. She has tenderness palpation lumbar musculature particular on the left. Incisions well-healed. She seems to have reasonable strength plantar flexion dorsiflexion quadriceps bilaterally. Results & Data ([facility]) Vital Signs (Past 12 Hours) Vital Signs Temp Pulse Resp BP Pulse Ox 09/15/20 07:11 36.6 C 77 18 175/80 H 97 09/14/20 23:30 36.3 C L 69 16 155/90 H 99 (1) Acute low back pain with left-sided sciatica Back pain laterality: left Qualified Code(s): M54.42 - Lumbago with sciatica, left side
--- NOTE | 2020-09-15 10:23 | Hospitalist Progress Note ---
Date of Service September 15, 2020 Assessment & Plan (1) Post-operative pain: s/p lumbar decompression and fusion L3-4 and L4-[address] Turner on 09/02/[address]: . Small periprosthetic fracture surrounding the right L5 pedicle screw which involves the right of the L5 vertebral body, pedicle, and right transverse process. This results in mild right lateral displacement of the pedicle screw. 2. There is 9 mm of anterolisthesis of L4 on L5 with mild right posterior displacement of the disc spacer. 3. L4-5 posterior decompression and fusion with pedicle screws and rods. No hardware fractures identified. Plan for revision tomorrow, NPO after midnight Continue pain control as per ortho Continue dexamethasone as per ortho Continue PT/OT Pain management consulted last ekg 08/19 - 61bpm, NSR with PVC, CXR 08/19 - no active disease Hypertension: BP elevated Continue lisinopril 10 mg and hydrochlorothiazide 25mg Continue Hydralazine IV prn Continue monitor BP Paroxysmal SVT (supraventricular tachycardia): History of tachyarrhythmia in the past. Had LINQ monitor placed - most recent LINQ interrogation do not detect any dysrhythmias Not currently on any medication Follows with Dr. Baldwin of [facility] CKD (chronic kidney disease) stage 3, GFR 30-59 ml/min: Creatinine 1.1, Baseline Cr ~1. Monitor renal function with daily BMP Anxiety: Continue Buspar Mood stable Dementia: Has not tolerated Aricept or Namenda mood stable, no current signs of delirium - will monitor GERD (gastroesophageal reflux disease): Continue PPI DVT px on SCD CODE STATUS FULL CODE Admission and Anticipated Discharge Date Admission Date: September 13, 2020 Supervising Physician Co-Signing Physician Notes Pt was seen and examined for follow up back pain and HTN. Agreed with Dot Hernandez exam, assessment and plan. Lying in bed with no distress. She continue to have post-operative pain. S/P Lumbar decompression and fusion L3-4 and L4-[address] Turner on 09/02/20. Plan for revision tomorrow by Dr. Turner. Continue pain control as per ortho. Continue dexamethasone as per ortho. Continue PT/O. BP elevated. Continue lisinopril 10 mg and hydrochlorothiazide 25mg. Hydralazine IV prn added. Continue monitor BP. Will make NPO after midnight for the lumbar revision. MD Mundo Subjective Pt seen and examined in 350-2. Follow up HTN and back pain. Sitting up in bedside chair. Complaining of low back pain, 8/10, nonradiating and described at sharp. Nothing is improving it. She is urinating and moving bowels with out difficult. Denies CP, SOB, dizziness, n/v/d, f/c or sweats. She does have underlying dementia so ROS unreliable. Review of Systems Review of Systems: All systems reviewed & are unremarkable except as noted in HPI & below Physical Exam Physical Exam: Gen: Thin, elderly, F, sitting upright in chair, NAD, A&O to self and place, not time HEENT: Normocephalic, atraumatic, conjunctivae moist, sclerae anicteric, mucous membranes moist. Lung: Clear to Auscultation bilaterally, no wheezes/rales/rhonchi Heart: Regular rate, regular rhythm, no murmurs, rubs, or gallops Abdomen: Soft, NT, ND +BS x 4 Extremities: No edema Skin: Warm, no rash, negative turgor. Results & Data Results & Data ([facility]) Vital Signs (Past 12 Hours) Vital Signs Temp Pulse Resp BP Pulse Ox 09/15/20 07:11 36.6 C 77 18 175/80 H 97 09/14/20 23:30 36.3 C L 69 16 155/90 H 99 Diagnostic Findings Lumbar spine CT: 1. Small periprosthetic fracture surrounding the right L5 pedicle screw which involves the right of the L5 vertebral body, pedicle, and right transverse process. This results in mild right lateral displacement of the pedicle screw. 2. There is 9 mm of anterolisthesis of L4 on L5 with mild right posterior displacement of the disc spacer. 3. L4-5 posterior decompression and fusion with pedicle screws and rods. No hardware fractures identified. Medications Administered Acetaminophen (Acetaminophen 325 Mg Tab) 650 mg PO BID ELIJAH Stop: 10/13/20 20:59 Last Admin: 09/15/20 08:15 Dose: 650 mg Documented by: [id number] Admin: 09/14/20 20:29 Dose: 650 mg Documented by: [id number] Admin: 09/14/20 09:14 Dose: 650 mg Documented by: [id number] Admin: 09/13/20 20:57 Dose: 650 mg Documented by: [id number] Buspirone HCl (Buspirone 5 Mg Tab) 10 mg PO BID [facility] Stop: 10/13/20 20:59 Last Admin: 09/15/20 08:14 Dose: 10 mg Documented by: [id number] Admin: 09/14/20 20:29 Dose: 10 mg Documented by: [id number] Admin: 09/14/20 09:15 Dose: 10 mg Documented by: [id number] Admin: 09/13/20 20:58 Dose: 10 mg Documented by: [id number] Docusate Sodium (Docusate Sodium 100 Mg Cap) 100 mg PO PM [facility] Stop: 10/13/20 20:59 Last Admin: 09/14/20 20:29 Dose: 100 mg Documented by: [id number] Admin: 09/13/20 20:57 Dose: 100 mg Documented by: [id number] Ferrous Sulfate (Ferrous Sulfate 325 Mg Tab) 325 mg PO QAM [facility] Stop: 10/14/20 08:59 Last Admin: 09/15/20 08:13 Dose: 325 mg Documented by: [id number] Admin: 09/14/20 09:15 Dose: 325 mg Documented by: [id number] Gabapentin (Gabapentin 100 Mg Cap) 100 mg PO DAILY [facility] Stop: 10/14/20 08:59 Last Admin: 09/15/20 08:14 Dose: 100 mg Documented by: [id number] Admin: 09/14/20 09:15 Dose: 100 mg Documented by: [id number] Hydrochlorothiazide (Hydrochlorothiazide 25 Mg Tab) [facility] [place] Stop: 10/14/20 08:59 Last Admin: 09/15/20 08:13 Dose: 25 mg Documented by: [id number] Admin: 09/14/20 09:15 Dose: 25 mg Documented by: [id number] Lorazepam (Ativan) 1 mg in 2 mls @ 2 mls/min IV Q6H PRN PRN Reason: Anxiety/Spasms Stop: 10/13/20 13:29 Last Admin: 09/13/20 14:11 Dose: 2 mls/min Documented by: [id number] Lactated Ringer's (Lr) 1,000 mls @ 15 mls/hr IV .Q24H [facility] Stop: 10/13/20 12:14 Last Admin: 09/13/20 14:10 Dose: 15 mls/hr Documented by: [id number] Lisinopril (Lisinopril 10 Mg Tab) 10 mg PO QAM [facility] Stop: 10/14/20 08:59 Last Admin: 09/15/20 08:14 Dose: 10 mg Documented by: [id number] Admin: 09/14/20 09:14 Dose: 10 mg Documented by: [id number] Lorazepam (Lorazepam 1 Mg Tab) 1 mg PO Q6H PRN PRN Reason: Anxiety/spasms Stop: 10/13/20 12:14 Last Admin: 09/15/20 05:29 Dose: 1 mg Documented by: [id number] Admin: 09/14/20 20:30 Dose: 1 mg Documented by: [id number] Admin: 09/14/20 15:04 Dose: 1 mg Documented by: [id number] Admin: 09/14/20 06:42 Dose: 1 mg Documented by: [id number] Admin: 09/14/20 00:27 Dose: 1 mg Documented by: [id number] Oxycodone HCl (Oxycodone Hcl Ir 5 Mg Tab (Immediate Release)) 5 mg PO Q4H PRN PRN Reason: MODERATE Pain (4,5,6) & Pre PT Stop: 09/27/20 12:14 Last Admin: 09/15/20 02:48 Dose: 5 mg Documented by: [id number] Admin: 09/14/20 17:20 Dose: 5 mg Documented by: [id number] Admin: 09/14/20 04:32 Dose: 5 mg Documented by: [id number] Admin: 09/13/20 20:57 Dose: 5 mg Documented by: [id number] Pantoprazole Sodium (Pantoprazole 40 Mg Tab) [facility] [place] Stop: 10/14/20 08:59 Last Admin: 09/15/20 08:14 Dose: 40 mg Documented by: [id number] Admin: 09/14/20 09:15 Dose: 40 mg Documented by: [id number] Potassium Chloride (Potassium Chloride Crtab 20 Meq Tabcr) 20 meq PO BID [facility] Stop: 10/13/20 20:59 Last Admin: 09/15/20 08:15 Dose: 20 meq Documented by: [id number] Admin: 09/14/20 20:30 Dose: 20 meq Documented by: [id number] Admin: 09/14/20 09:14 Dose: 20 meq Documented by: [id number] Admin: 09/13/20 20:59 Dose: 20 meq Documented by: [id number] Tramadol HCl (Tramadol Hcl 50 Mg Tablet) 50 mg PO Q4H PRN PRN Reason: MODERATE Pain (4,5,6) & Pre PT Stop: 10/13/20 12:14 Last Admin: 09/15/20 05:29 Dose: 50 mg Documented by: [id number] Admin: 09/14/20 20:30 Dose: 50 mg Documented by: [id number] Admin: 09/14/20 06:41 Dose: 50 mg Documented by: [id number] Admin: 09/14/20 00:27 Dose: 50 mg Documented by: [id number] Admin: 09/13/20 16:21 Dose: 50 mg Documented by: [id number] Discontinued Medications Hydromorphone HCl (Hydromorphone Inj 0.5 Mg/0.5 Ml Syr) 0.5 mg IV NOW STA Stop: 09/13/20 08:46 Last Admin: 09/13/20 08:58 Dose: 0.5 mg Documented by: [id number] Sodium Chloride (Nss) 500 mls @ 999 mls/hr IV .Q31M ONE Stop: 09/13/20 09:15 Last Infusion: 09/13/20 10:26 Dose: 0 mls/hr Documented by: [id number] Admin: 09/13/20 09:03 Dose: 999 mls/hr Documented by: [id number] Sodium Chloride (Nss) 500 mls @ 999 mls/hr IV .Q31M ONE Stop: 09/13/20 10:20 Last Infusion: 09/13/20 11:06 Dose: 0 mls/hr Documented by: [id number] Admin: 09/13/20 10:33 Dose: 999 mls/hr Documented by: [id number] Dexamethasone 8 mg/ Syringe 2 mls @ 1 mls/min IV DAILY ELIJAH Stop: 09/15/20 09:01 Last Admin: 09/15/20 08:14 Dose: 1 mls/min Documented by: [id number] Admin: 09/14/20 09:13 Dose: 1 mls/min Documented by: [id number] Admin: 09/13/20 14:10 Dose: 1 mls/min Documented by: [id number] Labetalol HCl (Labetalol Hcl Iv 5 Mg/Ml 20ml) 5 mg IV NOW STA Stop: 09/13/20 08:46 Last Admin: 09/13/20 09:02 Dose: 5 mg Documented by: [id number] Cosigned by: [id number]
--- NOTE | 2020-09-15 12:19 | Anesthesiology Consultation ---
Date of Service September 15, 2020 Covid 19 negative on 09/13/20. The patient underwent back surgery on 09/02/20. She was a Grade 1 view with a Campa 2 blade. Assessment & Plan (1) Encounter for pre-operative examination: Chart Review Chart Review: Acceptable Risk for Surgery and Patient NOT seen in Pre Admission Testing Consults Requested none History Surgery Operation Date: 09/16/20 07:00 Proposed Procedures p L3-S1 Decompression and Fusion - Orville Turner DO Height/Weight Height: 5 ft 1 in Weight: 52.1 kg Allergies Allergy/AdvReac Type Severity Reaction Status Date / Time cephalexin [From Keflex] Allergy Intermediate Unknown Verified 09/13/20 09:07 Medications Home Medications Medication Instructions Recorded Confirmed Last Taken Laxative (bisacodyl) 5 mg PO HS PRN 08/18/20 09/13/20 09/11/20 acetaminophen [Tylenol 8 Hour] 650 mg PO BID 08/18/20 09/13/20 09/13/20 buspirone 10 mg PO BID 08/18/20 09/13/20 09/13/20 docusate sodium [Stool Softener] 100 mg PO PM 08/18/20 09/13/20 09/13/20 ferrous sulfate [iron] 325 mg PO QAM 08/18/20 09/13/20 09/13/20 lisinopril 10 mg PO QAM 08/18/20 09/13/20 09/13/20 pantoprazole 40 mg PO QAM 08/18/20 09/13/20 09/13/20 potassium chloride 20 meq PO BID 08/18/20 09/13/20 09/13/20 tramadol 50 mg PO Q6H PRN #30 tab 09/03/20 09/13/20 09/13/20 hydrochlorothiazide 25 mg PO QAM #30 tab 09/05/20 09/13/20 09/13/20 gabapentin 100 mg PO DAILY 09/12/20 09/13/20 09/13/20 lidocaine 1 patch TOPICAL DAILY #15 ea 09/12/20 09/13/20 09/13/20 methylprednisolone 4 mg PO UD 09/12/20 09/13/20 09/13/20 oxycodone 2.5 - 5 mg PO Q6H PRN #12 tab 01/10/0209/13/20 09/13/20 Active Medications Generic Name Dose Route Start Last Admin Trade Name Freq PRN Reason Stop Dose Admin Acetaminophen 650 mg 09/13/20 21:00 09/15/20 08:15 Acetaminophen 325 Mg Tab PO 10/13/20 20:59 650 mg BID ELIJAH Administration Buspirone HCl 10 mg 09/13/20 21:00 09/15/20 08:14 Buspirone 5 Mg Tab PO 10/13/20 20:59 10 mg BID ELIJAH Administration Docusate Sodium 100 mg 09/13/20 21:00 09/14/20 20:29 Docusate Sodium 100 Mg Cap PO 10/13/20 20:59 100 mg PM ELIJAH Administration Ferrous Sulfate 325 mg 09/14/20 09:00 09/15/20 08:13 Ferrous Sulfate 325 Mg Tab PO 10/14/20 08:59 325 mg QAM ELIJAH Administration Gabapentin 100 mg 09/14/20 09:00 09/15/20 08:14 Gabapentin 100 Mg Cap PO 10/14/20 08:59 100 mg DAILY ELIJAH Administration Hydrochlorothiazide 25 mg 09/14/20 09:00 09/15/20 08:13 Hydrochlorothiazide 25 Mg Tab PO 10/14/20 08:59 25 mg QAM ELIJAH Administration Lorazepam 1 mg in 2 mls @ 2 mls/min 09/13/20 13:30 09/13/20 14:11 Ativan IV 10/13/20 13:29 2 mls/min Q6H PRN Administration Anxiety/Spasms Lactated Ringer's 1,000 mls @ 15 mls/hr 09/13/20 12:15 09/13/20 14:10 Lr IV 10/13/20 12:14 15 mls/hr .Q24H ELIJAH Administration Lisinopril 10 mg 09/14/20 09:00 09/15/20 08:14 Lisinopril 10 Mg Tab PO 10/14/20 08:59 10 mg QAM ELIJAH Administration Lorazepam 1 mg 09/13/20 12:15 09/15/20 05:29 Lorazepam 1 Mg Tab PO 10/13/20 12:14 1 mg Q6H PRN Administration Anxiety/spasms Oxycodone HCl 5 mg 09/13/20 12:15 09/15/20 02:48 Oxycodone Hcl Ir 5 Mg Tab (Immediate Release) PO 09/27/20 12:14 5 mg Q4H PRN Administration MODERATE Pain (4,5,6) & Pre PT Pantoprazole Sodium 40 mg 09/14/20 09:00 09/15/20 08:14 Pantoprazole 40 Mg Tab PO 10/14/20 08:59 40 mg QAM ELIJAH Administration Potassium Chloride 20 meq 09/13/20 21:00 09/15/20 08:15 Potassium Chloride Crtab 20 Meq Tabcr PO 10/13/20 20:59 20 meq BID ELIJAH Administration Tramadol HCl 50 mg 09/13/20 12:15 09/15/20 05:29 Tramadol Hcl 50 Mg Tablet PO 10/13/20 12:14 50 mg Q4H PRN Administration MODERATE Pain (4,5,6) & Pre PT Past Medical History Medical History Anxiety CKD (chronic kidney disease) stage 3, GFR 30-59 ml/min Dementia HX PROVIDED BY PT'S Depression GERD (gastroesophageal reflux disease) MILD AND OCC History of cardiac monitoring HAS LOOP RECORDER IN PLACE /RIGHT CHEST. FOLLOWS [facility]/ DUE TO SYNCOPAL EPISODES IN PAST- LOOP RECORDER PLACED IN 2018- NO RECENT [facility] EPISODES History of ileus NO RECENT ISSUES Hypertension Paroxysmal SVT (supraventricular tachycardia) Per records Past Family History Family History Other Arthritis Heart disease Past Surgical History Surgical History History of adenoidectomy History of cholecystectomy History of colonoscopy History of esophagogastroduodenoscopy (EGD) History of hysterectomy History of tonsillectomy History of tooth extraction Social History Smoking Status: Never smoker Hx Alcohol Use: No Hx Substance Use: No substance use type: does not use Physical Exam Vital Signs Last Vital Signs Temp 36.6 C 09/15/20 07:11 Pulse 77 09/15/20 07:11 Resp 18 09/15/20 07:11 BP 175/80 H 09/15/20 07:11 Pulse Ox 97 09/15/20 07:11 Testing Laboratory Results 09/13/20 08:56 09/13/20 08:56
[2020-09-15] MEDS: LACTATED RINGER'S 1,000 ML IV SCH ×2 (14:57→15:02)
[2020-09-15] MEDS: DOCUSATE SODIUM 100 MG CAP PO SCH (20:55)
[2020-09-16] MEDS: oxyCODONE HCL IR 5 MG TAB (IMMEDIATE RELEASE) PO PRN ×2 (04:42→17:02)
[2020-09-16] MEDS: LORazepam 1 MG TAB PO PRN ×3 (04:42→21:12)
[2020-09-16 07:51] LABS: Hematocrit (blood only) 42.1 % (37-47); Hemoglobin 13.5 g/dL (12.0-16.0); Mean Corpuscular Hemoglobin 29.4 pg (25-34); Mean Corpuscular Hgb Conc 32.1 g/dL (32-36); Mean Corpuscular Volume 91.7 fL (80-100); Mean Platelet Volume 10.2 fL (7.4-10.4); Platelet Count 324 K/uL (130-400); RDW Coefficient of Variation 13.5 % (11.5-14.5); RDW Standard Deviation 44.8 fL (36.4-46.3); Red Blood Count 4.59 M/uL (4.2-5.4); White Blood Count 18.96 K/uL (4.8-10.8)
[2020-09-16 08:19] LABS: Albumin Level 3.4 gm/dl (3.4-5.0); BUN Creatinine Ratio 22.8 (10-20); Calcium 9.6 mg/dl (8.5-10.1); Creatinine Clr Calc Pharmacy 32.8 ml/min; Est GFR (African American) 58.5; Est GFR (Non-African American) 50.5; Potassium 4.1 mmol/L (3.5-5.1)
[2020-09-16 08:22] LABS: Bilirubin,Total 0.5 mg/dl (0.2-1); Globulin 3.4 gm/dl (2.5-4.0); Total Protein 6.8 gm/dl (6.4-8.2)
[2020-09-16 08:26] LABS: Partial Thromboplastin Ratio 0.8; Partial Thromboplastin Time 23.6 Seconds (21.0-31.0); Prothrombin Time 10.5 Seconds (9.0-12.0)
--- NOTE | 2020-09-16 08:30 | History & Physical Bridge Note ---
Date of Service September 16, 2020 History & Physical Bridge Note I have examined the patient, reviewed the History & Physical and in the interval since the performance of the History & Physical I have noted the following changes of clinical significance: no changes noted L3-S1 fusion
[2020-09-16] MEDS ORDERED: ONDANSETRON INJ 2 MG/ML 2 ML VIAL IV PRN ×2 (08:38→12:25)
[2020-09-16] MEDS ORDERED: HYDROmorphone INJ 1 MG/ML SYRINGE IV PRN (08:38)
[2020-09-16] MEDS ORDERED: LABETALOL HCL IV 5 MG/ML 20ML IV PRN (08:38)
[2020-09-16] MEDS ORDERED: PHENYLEPHRINE 100MCG/ML 5ML SYR IV PRN (08:38)
[2020-09-16] MEDS ORDERED: ATROPINE SULFATE 0.1 MG/ML 10ML SYR IV PRN (08:38)
[2020-09-16] MEDS ORDERED: ePHEDrine sulfate 50 MG/ML AMP IV PRN (08:38)
[2020-09-16 08:39] LABS: Basophils # (auto) 0.01 K/uL (0-0.2); Basophils % (auto) 0.1 %; Eosinophils # (auto) 0.15 K/uL (0-0.5); Eosinophils % (auto) 0.8 %; Immature Granulocytes # (auto) 0.14 K/uL (0.00-0.02); Immature Granulocytes % (auto) 0.7 %; Lymphocytes # (auto) 5.54 K/uL (1.2-3.4); Lymphocytes % (auto) 29.2 %; Monocytes # (auto) 1.51 K/uL (0.11-0.59); Neutrophils # (auto) 11.61 K/uL (1.4-6.5); Neutrophils % (auto) 61.2 %
[2020-09-16] MEDS ORDERED: ROCURONIUM BROMIDE 10 MG/ML 5 ML VIAL IV ONE (08:42)
[2020-09-16] MEDS ORDERED: ONDANSETRON INJ 2 MG/ML 2 ML VIAL ONE (08:42)
[2020-09-16] MEDS ORDERED: LIDOCAINE HCL 2% 2 ML VIAL/AMP(20MG/ML) INFIL ONE (08:42)
[2020-09-16] MEDS ORDERED: fentaNYL citrate 100 MCG/2 ML VIAL ONE (08:42)
[2020-09-16] MEDS ORDERED: DEXAMETHASONE SOD INJ 4 MG/ML VIAL ONE (08:42)
[2020-09-16] MEDS ORDERED: PROPOFOL IV EMULSION 10 MG/ML 20 ML VIAL IV ONE (08:42)
--- NOTE | 2020-09-16 09:02 | Hospitalist Progress Note ---
Date of Service September 16, 2020 Assessment & Plan (1) Post-operative pain: s/p lumbar decompression and fusion L3-4 and L4-[address] Turner on 09/02/[address]: . Small periprosthetic fracture surrounding the right L5 pedicle screw which involves the right of the L5 vertebral body, pedicle, and right transverse process. This results in mild right lateral displacement of the pedicle screw. 2. There is 9 mm of anterolisthesis of L4 on L5 with mild right posterior displacement of the disc spacer. 3. L4-5 posterior decompression and fusion with pedicle screws and rods. No hardware fractures identified. to undergo revision today and L3-S1 decomp/fusion Continue pain control as per ortho Continue dexamethasone as per ortho Continue PT/OT Pain management consulted last ekg 08/19 - 61bpm, NSR with PVC, CXR 08/19 - no active disease Leukcocytosis wbc 18k, likely in setting of dexamethasone use no s/sx of infection/sirs will monitor Hypertension: BP elevated Continue lisinopril 10 mg HCTZ on hold today pre operatively, na 133, resume when able Continue Hydralazine IV prn Continue monitor BP Paroxysmal SVT (supraventricular tachycardia): History of tachyarrhythmia in the past. Had LINQ monitor placed - most recent LINQ interrogation do not detect any dysrhythmias Not currently on any medication Follows with Dr. Baldwin of [facility] CKD (chronic kidney disease) stage 3, GFR 30-59 ml/min: Creatinine 1.1, Baseline Cr ~1. Monitor renal function with daily BMP Anxiety: Continue Buspar Mood stable Dementia: Has not tolerated Aricept or Namenda mood stable, no current signs of delirium - will monitor GERD (gastroesophageal reflux disease): Continue PPI DVT px on SCD CODE STATUS FULL CODE Admission and Anticipated Discharge Date Admission Date: September 13, 2020 Supervising Physician Co-Signing Physician Notes Pt was seen and examined for follow up back pain and HTN. Agreed with Dot Hernandez exam, assessment and plan. S/P removal of instrumentation L4-5 including interbody cage. revision decompression L4-5 per #3 posterior spinal fusion L3- S1. #4 placement posterior instrumentation L3-S1 performed this morning by Dr. Figueroa this morning. No postop complication. Continue pain control as per ortho. Continue dexamethasone as per ortho. Will monitor H/H. Continue PT/O. Continue incentive spirometry. Continue lisinopril 10 mg and hydrochlorothiazide 25mg. Hydralazine IV prn added. Continue monitor BP. Fall precaution. MD Mundo Subjective Pt seen and examined in 350-2. Follow up HTN and back pain. Sitting lying in bed, uncomfortable. Going to undergo back surgery this morning. is at bedside. Denies CP, SOB, dizziness, n/v/d, f/c or sweats. Moving bowel and bladder without difficulty. offers no concerns and is here for consent to be obtained from surgeon. She does have underlying dementia so ROS unreliable. Review of Systems Review of Systems: All systems reviewed & are unremarkable except as noted in HPI & below Physical Exam Physical Exam: Gen: Thin, petite, F, lying in bed, appears in pain, NAD, A&O x3 HEENT: Normocephalic, atraumatic, conjunctivae moist, sclerae anicteric, mucous membranes moist. Lung: Clear to Auscultation bilaterally, no wheezes/rales/rhonchi Heart: Regular rate, regular rhythm, no murmurs, rubs, or gallops Abdomen: Soft, NT, ND +BS x 4 Extremities: No edema Skin: Warm, no rash, negative turgor. Results & Data Results & Data ([facility]) Vital Signs (Past 12 Hours) Vital Signs Temp Pulse Resp BP Pulse Ox 09/16/20 07:30 36.5 C 90 18 160/94 H 96 09/15/20 22:56 36.6 C 85 16 138/71 97 Laboratory Results Short CBC 09/16/20 Range/Units 07:34 WBC 18.96 H (4.8-10.8) K/uL Hgb 13.5 (12.0-16.0) g/dL Hct 42.1 (37-47) % Plt Count 324 (130-400) K/uL BMP 09/16/20 07:34 Sodium 133 L Potassium 4.1 Chloride 101 Carbon Dioxide 25 BUN 24 H Creatinine 1.05 Glucose 88 Calcium 9.6 Liver Function 09/16/20 Range/Units 07:34 Total Bilirubin 0.5 (0.2-1) mg/dl AST 13 L (15-37) U/L ALT 28 (12-78) U/L Alkaline Phosphatase 114 (45-117) U/L Albumin 3.4 (3.4-5.0) gm/dl Diagnostic Findings Lumbar spine CT: 1. Small periprosthetic fracture surrounding the right L5 pedicle screw which involves the right of the L5 vertebral body, pedicle, and right transverse process. This results in mild right lateral displacement of the pedicle screw. 2. There is 9 mm of anterolisthesis of L4 on L5 with mild right posterior displacement of the disc spacer. 3. L4-5 posterior decompression and fusion with pedicle screws and rods. No hardware fractures identified. Covid screen negative Medications Administered Acetaminophen (Acetaminophen 325 Mg Tab) 650 mg PO BID ELIJAH Stop: 10/13/20 20:59 Last Admin: 09/15/20 20:55 Dose: 650 mg Documented by: [id number] Admin: 09/15/20 08:15 Dose: 650 mg Documented by: [id number] Admin: 09/14/20 20:29 Dose: 650 mg Documented by: [id number] Admin: 09/14/20 09:14 Dose: 650 mg Documented by: [id number] Admin: 09/13/20 20:57 Dose: 650 mg Documented by: [id number] Buspirone HCl (Buspirone 5 Mg Tab) 10 mg PO BID ELIJAH Stop: 10/13/20 20:59 Last Admin: 09/15/20 20:55 Dose: 10 mg Documented by: [id number] Admin: 09/15/20 08:14 Dose: 10 mg Documented by: [id number] Admin: 09/14/20 20:29 Dose: 10 mg Documented by: [id number] Admin: 09/14/20 09:15 Dose: 10 mg Documented by: [id number] Admin: 09/13/20 20:58 Dose: 10 mg Documented by: [id number] Docusate Sodium (Docusate Sodium 100 Mg Cap) 100 mg PO PM ELIJAH Stop: 10/13/20 20:59 Last Admin: 09/15/20 20:55 Dose: 100 mg Documented by: [id number] Admin: 09/14/20 20:29 Dose: 100 mg Documented by: [id number] Admin: 09/13/20 20:57 Dose: 100 mg Documented by: [id number] Ferrous Sulfate (Ferrous Sulfate 325 Mg Tab) 325 mg PO QAM ELIJAH Stop: 10/14/20 08:59 Last Admin: 09/15/20 08:13 Dose: 325 mg Documented by: [id number] Admin: 09/14/20 09:15 Dose: 325 mg Documented by: [id number] Gabapentin (Gabapentin 100 Mg Cap) 100 mg PO DAILY [facility] Stop: 10/14/20 08:59 Last Admin: 09/15/20 08:14 Dose: 100 mg Documented by: [id number] Admin: 09/14/20 09:15 Dose: 100 mg Documented by: [id number] Hydrochlorothiazide (Hydrochlorothiazide 25 Mg Tab) 25 mg PO QAM [facility] Stop: 10/14/20 08:59 Last Admin: 09/15/20 08:13 Dose: 25 mg Documented by: [id number] Admin: 09/14/20 09:15 Dose: 25 mg Documented by: [id number] Hydromorphone HCl (Hydromorphone Inj 0.5 Mg/0.5 Ml Syr) 0.5 mg IV Q15M PRN PRN Reason: Pain Stop: 09/27/20 09:36 Last Admin: 09/15/20 13:15 Dose: 0.5 mg Documented by: [id number] Lorazepam (Ativan) 1 mg in 2 mls @ 2 mls/min IV Q6H PRN PRN Reason: Anxiety/Spasms Stop: 10/13/20 13:29 Last Admin: 09/13/20 14:11 Dose: 2 mls/min Documented by: [id number] Lactated Ringer's (Lr) 1,000 mls @ 15 mls/hr IV .Q24H [facility] Stop: 10/13/20 12:14 Last Admin: 09/15/20 15:02 Dose: Not Given Documented by: [id number] Admin: 09/15/20 14:57 Dose: 15 mls/hr Documented by: [id number] Infusion: 09/15/20 14:57 Dose: 15 mls/hr Documented by: [id number] Admin: 09/13/20 14:10 Dose: 15 mls/hr Documented by: [id number] Lisinopril (Lisinopril 10 Mg Tab) 10 mg PO QAM [facility] Stop: 10/14/20 08:59 Last Admin: 09/15/20 08:14 Dose: 10 mg Documented by: [id number] Admin: 09/14/20 09:14 Dose: 10 mg Documented by: [id number] Lorazepam (Lorazepam 1 Mg Tab) 1 mg PO Q6H PRN PRN Reason: Anxiety/spasms Stop: 10/13/20 12:14 Last Admin: 09/16/20 04:42 Dose: 1 mg Documented by: [id number] Admin: 09/15/20 23:11 Dose: 1 mg Documented by: [id number] Admin: 09/15/20 05:29 Dose: 1 mg Documented by: [id number] Admin: 09/14/20 20:30 Dose: 1 mg Documented by: [id number] Admin: 09/14/20 15:04 Dose: 1 mg Documented by: [id number] Admin: 09/14/20 06:42 Dose: 1 mg Documented by: [id number] Admin: 09/14/20 00:27 Dose: 1 mg Documented by: [id number] Oxycodone HCl (Oxycodone Hcl Ir 5 Mg Tab (Immediate Release)) 5 mg PO Q4H PRN PRN Reason: MODERATE Pain (4,5,6) & Pre PT Stop: 09/27/20 12:14 Last Admin: 09/16/20 04:42 Dose: 5 mg Documented by: [id number] Admin: 09/15/20 18:22 Dose: 5 mg Documented by: [id number] Admin: 09/15/20 02:48 Dose: 5 mg Documented by: [id number] Admin: 09/14/20 17:20 Dose: 5 mg Documented by: [id number] Admin: 09/14/20 04:32 Dose: 5 mg Documented by: [id number] Admin: 09/13/20 20:57 Dose: 5 mg Documented by: [id number] Pantoprazole Sodium (Pantoprazole 40 Mg Tab) 40 mg PO QAM ELIJAH Stop: 10/14/20 08:59 Last Admin: 09/15/20 08:14 Dose: 40 mg Documented by: [id number] Admin: 09/14/20 09:15 Dose: 40 mg Documented by: [id number] Potassium Chloride (Potassium Chloride Crtab 20 Meq Tabcr) 20 meq PO BID ELIJAH Stop: 10/13/20 20:59 Last Admin: 09/15/20 20:55 Dose: 20 meq Documented by: [id number] Admin: 09/15/20 08:15 Dose: 20 meq Documented by: [id number] Admin: 09/14/20 20:30 Dose: 20 meq Documented by: [id number] Admin: 09/14/20 09:14 Dose: 20 meq Documented by: [id number] Admin: 09/13/20 20:59 Dose: 20 meq Documented by: [id number] Tramadol HCl (Tramadol Hcl 50 Mg Tablet) 50 mg PO Q4H PRN PRN Reason: MODERATE Pain (4,5,6) & Pre PT Stop: 10/13/20 12:14 Last Admin: 09/15/20 23:11 Dose: 50 mg Documented by: [id number] Admin: 09/15/20 05:29 Dose: 50 mg Documented by: [id number] Admin: 09/14/20 20:30 Dose: 50 mg Documented by: [id number] Admin: 09/14/20 06:41 Dose: 50 mg Documented by: [id number] Admin: 09/14/20 00:27 Dose: 50 mg Documented by: [id number] Admin: 09/13/20 16:21 Dose: 50 mg Documented by: [id number] Discontinued Medications Hydromorphone HCl (Hydromorphone Inj 0.5 Mg/0.5 Ml Syr) 0.5 mg IV NOW STA Stop: 09/13/20 08:46 Last Admin: 09/13/20 08:58 Dose: 0.5 mg Documented by: [id number] Sodium Chloride (Nss) 500 mls @ 999 mls/hr IV .Q31M ONE Stop: 09/13/20 09:15 Last Infusion: 09/13/20 10:26 Dose: 0 mls/hr Documented by: [id number] Admin: 09/13/20 09:03 Dose: 999 mls/hr Documented by: [id number] Sodium Chloride (Nss) 500 mls @ 999 mls/hr IV .Q31M ONE Stop: 09/13/20 10:20 Last Infusion: 09/13/20 11:06 Dose: 0 mls/hr Documented by: [id number] Admin: 09/13/20 10:33 Dose: 999 mls/hr Documented by: [id number] Dexamethasone 8 mg/ Syringe 2 mls @ 1 mls/min IV DAILY ELIJAH Stop: 09/15/20 09:01 Last Admin: 09/15/20 08:14 Dose: 1 mls/min Documented by: [id number] Admin: 09/14/20 09:13 Dose: 1 mls/min Documented by: [id number] Admin: 09/13/20 14:10 Dose: 1 mls/min Documented by: [id number] Labetalol HCl (Labetalol Hcl Iv 5 Mg/Ml 20ml) 5 mg IV NOW STA Stop: 09/13/20 08:46 Last Admin: 09/13/20 09:02 Dose: 5 mg Documented by: [id number] Cosigned by: [id number] COVID-19 Results Results COVID-19 Lab Results: RBC 3.87 M/uL (4.2-5.4) L 09/19/20 WBC 17.17 K/uL (4.8-10.8) H 09/19/20 Hgb 11.3 g/dL (12.0-16.0) L 09/19/20 Hct 35.0 % (37-47) L 09/19/20 Plt Count 312 K/uL (130-400) 09/19/20 Neutrophils (%) (Auto) 74.0 % 09/17/20 Lymphocytes (%) (Auto) 15.8 % 09/17/20 Monocytes # (Auto) 2.13 K/uL (0.11-0.59) H 09/17/20 Eosinophils # (Auto) 0.06 K/uL (0-0.5) 09/17/20 Immature Granulocyte % (Auto) 0.5 % 09/17/20 Neutrophils # (Auto) 16.85 K/uL (1.4-6.5) H 09/17/20 Lymphocytes # (Auto) 3.59 K/uL (1.2-3.4) H 09/17/20 Monocytes # (Auto) 2.13 K/uL (0.11-0.59) H 09/17/20 Eosinophils # (Auto) 0.06 K/uL (0-0.5) 09/17/20 Basophils # (Auto) 0.01 K/uL (0-0.2) 09/17/20 Immature Granulocyte # (Auto) 0.11 K/uL (0.00-0.02) H 09/17/20 Na 134 mmol/L (136-145) L 09/19/20 K 4.1 mmol/L (3.5-5.1) 09/19/20 Cl 101 mmol/L (98-107) 09/19/20 CO2 26 mmol/L (21-32) 09/19/20 Anion Gap 7.0 (3-11) 09/19/20 BUN 23 mg/dl (7-18) H 09/19/20 Creatinine 0.87 mg/dl (0.6-1.2) 09/19/20 BUN/Creatinine Ratio 26.4 (10-20) H 09/19/20 Glucose Level 109 mg/dl (70-99) H 09/19/20 Ca 9.9 mg/dl (8.5-10.1) 09/19/20 Total Bilirubin 0.5 mg/dl (0.2-1) 09/16/20 AST/SGOT 13 U/L (15-37) L 09/16/20 ALT/SGPT 28 U/L (12-78) 09/16/20 Alkaline Phosphatase 114 U/L (45-117) 09/16/20 Total Protein 6.8 gm/dl (6.4-8.2) 09/16/20 Albumin 3.4 gm/dl (3.4-5.0) 09/16/20 Globulin 3.4 gm/dl (2.5-4.0) 09/16/20 Albumin/Globulin Ratio 1.0 (0.9-2) 09/16/20 PTT 23.6 Seconds (21.0-31.0) 09/16/20 INR 1.0 (0.9-1.1) 09/16/20 SARS-CoV-2, RNA, NAAT NEGATIVE (NEGATIVE) 09/16/20 SARS-CoV-2 Ag (Rapid) Negative (Negative) 09/13/20
[2020-09-16] MEDS ORDERED: BUPIVACAINE/EPINEPHRINE 0.5% MPF 1:200,000 30 ML VIAL ONE (09:09)
[2020-09-16] MEDS ORDERED: GENTAMICIN SULFATE 40 MG/ML 2 ML VIAL ONE (09:09)
[2020-09-16] MEDS ORDERED: BACITRACIN INJ 50,000 UNIT VIAL ONE (09:10)
[2020-09-16] MEDS ORDERED: VANCOMYCIN HCL 1000MG/20ML VIAL ONE (09:10)
[2020-09-16] MEDS ORDERED: GLYCOPYRROLATE 0.2 MG/ML VIAL ONE (10:07)
[2020-09-16] MEDS ORDERED: NEOSTIGMINE METHYLSULFATE 5 MG/5 ML SYR ONE (10:07)
[2020-09-16] MEDS ORDERED: FLOSEAL HEMOSTATIC MATRIX 10ML TOP ONE (10:18)
--- NOTE | 2020-09-16 11:04 | Operative Report ---
Post Operative Report Pre & Post Diagnosis Operation Date: 09/16/20 07:50 Pre-Op Diagnosis: L4 and L5 vertebral body fracture status post fusion Post-Op Diagnosis: Same I identified the patient and participated in the time-out.: Yes Procedure Operation Date: 09/16/20 07:50 Actual Procedures #1 removal of instrumentation L4-5 including interbody cage. #2 revision decompression L4-5 per #3 posterior spinal fusion L3-S1. #4 placement posterior instrumentation L3-S1. #5 placement infuse collagen sponge, master graft in the posterior lateral gutters. #6 placement of stimulan beads throughout the operative site impregnated with vancomycin and gentamicin. Surgeon Orville Turner, Registered Dental Assistant Rda Anahi Guillory Estimated Blood Loss 50 Findings Consistent with Post-Op Diagnosis Specimens None Indications This is a 80-year-old female known to me the presents with excruciating back pain approximately 2 weeks status post fusion. CAT scan imaging demonstrated fracture of instrumentation in the vertebral bodies of L4 and L5 but subsequently she is here for urgent stabilization of the fracture. Description of Procedure Patient was met with identified informed consent obtained by her . Patient was then taken to the operative suite underwent a patient placed in a prone position the Wesley table top Cj frame. All bony prominences well- padded eyes inspected to ensure no external pressure placed upon the. This point the lumbar spine was prepped and draped in normal sterile fashion. Sharp dissection with the assistance of pericarditis from down to and exposing the lamina and transverse processes of L3 and instrumentation at L4-L5 and the sacral ala bilaterally. And performed a revision laminotomy at L4-5 exposed retropulsed interbody cage and this was removed without difficulty. I then proceeded to move the hardware at L4 and L5 bilaterally. I noticed marked loosening of the left L4 pedicle screw secondary to fracture and a right L5 pedicle screw secondary to fracture. Pedicle screws were then placed on bilaterally at L3 L5 on the left and S1 on the left. In L4 on the right and S1 on the right. The proper sized laly was then locked into place as well as a cross-link bilaterally. The transverse processes of L3-4-5 and the sacral ala burred to subcortical being bone. Infuse collagen sponge mass graft local graft placed in the posterior gutters. A cross-link locked in place. 15 round NAEL drain inserted. The incision was then closed with 1 Vicryl fascia 2-0 Vicryl subtenons and 4 Monocryl for final closure. Prior to closure we did place partially 5 cc of stimulant beads throughout the incision. Spinal cord monitoring was utilized at the procedure no changes noted. Lastly Anahi Guillory was present at the entire surgery involved the patient positioning complex portions of the surgery and final skin closure. I attest to the content of the Intraoperative Record and any orders documented therein. Any exceptions are noted below.
--- NOTE | 2020-09-16 11:13 | Fluoroscopy Report ---
INTRAOPERATIVE RADIOGRAPHS CLINICAL HISTORY: L3-S1 spinal fusion. Fluoroscopy time: 25 seconds. FINDINGS: 2 spot fluoroscopic views of the lumbar spine are presented. There has been laminectomy and posterior fusion seen from L3-S1. Interpedicular screws are present at all levels. The orthopedic singh rdware appears intact. IMPRESSION: Intraoperative images from L3-S1 spinal fusion as above. Electronically signed by: Chace Delgado M.D. 09/16/2020 11:12 AM
[2020-09-16] MEDS: fentaNYL citrate 100 MCG/2 ML VIAL IV PRN ×3 (11:28→11:50)
--- NOTE | 2020-09-16 11:59 | Anesthesiology Progress Note ---
Date of Service September 16, 2020 Anesthesia Post Procedure Vital Signs Vital Signs: Temp Pulse Pulse Resp BP Pulse Ox 09/16/20 11:50 36.5 C 79 21 175/94 H 100 09/16/20 11:40 58 L 17 150/72 H 100 09/16/20 11:30 77 24 207/95 H 100 09/16/20 11:21 36.3 C L 87 20 195/104 H 100 09/16/20 09:17 36.8 C 78 16 161/83 H 98 09/16/20 07:30 36.5 C 90 18 160/94 H 96 09/15/20 22:56 36.6 C 85 16 138/71 97 09/15/20 14:53 37.0 C 89 16 131/74 94 09/15/20 14:08 133/76 09/15/20 13:11 179/97 H Pain Intensity Left Hip: Pain Intensity: 4 Transfer of Care Handoff Completed per policy Notes Mental Status: alert / awake / arousable Patient Amnestic to Procedure: Yes Nausea / Vomiting: adequately controlled Pain: adequately controlled Airway Patency, RR, SpO2: stable & adequate BP & HR: stable & adequate Hydration State: stable & adequate Anesthetic Complications: no major complications apparent and Pt Satisfied with anesthetic care
[2020-09-16] MEDS ORDERED: diphenhydrAMINE Capsule 25 MG CAP PO PRN (12:25)
[2020-09-16] MEDS ORDERED: METOCLOPRAMIDE HCL INJ 5 MG/ML 2 ML VIAL IV PRN (12:25)
[2020-09-16] MEDS ORDERED: LORazepam 0.5 MG/1 ML VIAL IV PRN (12:25)
[2020-09-16] MEDS ORDERED: PROMETHAZINE HCL 12.5 MG in SODIUM CHLORIDE 0.9% 50 ML IV PRN (12:25)
[2020-09-16] MEDS ORDERED: DO NOT ADMINISTER PNEUMOCOCCAL VACCINE PRN (12:25)
[2020-09-16] MEDS ORDERED: ACETAMINOPHEN 500 MG TAB PO PRN (12:25)
[2020-09-16] MEDS ORDERED: ACETAMINOPHEN 1,000 MG/100 ML VIAL IV PRN (12:25)
[2020-09-16] MEDS ORDERED: DO NOT ADMINISTER FLU VACCINE PRN (12:25)
[2020-09-16] MEDS ORDERED: ONDANSETRON 4 MG OD TAB PO PRN (12:25)
[2020-09-16] MEDS ORDERED: MAGNESIUM HYDROXIDE SUSP 30 ML UDC PO PRN (12:25)
[2020-09-16] MEDS ORDERED: ALUMINUM/MAGNESIUM SUSP 30 ML UDC PO PRN (12:25)
[2020-09-16] MEDS ORDERED: SOD PHOSPHATE/SOD BIPHOSPHATE ENEMA 132 ML BTL PR PRN (12:25)
[2020-09-16] MEDS ORDERED: bisacodyL 10 MG SUPP PR PRN (12:25)
[2020-09-16] MEDS ORDERED: FAMOTIDINE 20 MG TAB PO PRN (12:25)
[2020-09-16] MEDS ORDERED: hydrOXYzine HCl 25 MG TAB PO PRN (12:25)
[2020-09-16] MEDS ORDERED: NALOXONE HCL 0.4 MG/1 ML VIAL/CARP IV PRN (12:25)
[2020-09-16] MEDS: LACTATED RINGER'S 1,000 ML IV SCH ×3 (12:30→22:48)
[2020-09-16] MEDS: busPIRone 5 MG TAB PO SCH ×2 (13:22→21:13)
[2020-09-16] MEDS: lisinopril 10 MG TAB PO SCH (13:22)
[2020-09-16] MEDS: POTASSIUM CHLORIDE CRTAB 20 MEQ TABCR PO SCH ×2 (13:22→21:12)
[2020-09-16] MEDS: ACETAMINOPHEN 325 MG TAB PO SCH ×2 (13:22→21:12)
[2020-09-16] MEDS: FERROUS SULFATE 325 MG TAB PO SCH (13:23)
[2020-09-16] MEDS: hydroCHLOROthiazide 25 MG TAB PO SCH (13:23)
[2020-09-16] MEDS: GABAPENTIN 100 MG CAP PO SCH (13:23)
[2020-09-16] MEDS: PANTOprazole 40 MG TAB PO SCH (13:23)
[2020-09-16] MEDS: ceFAZolin 1000MG 1,000 MG/7.5 ML SYR IV SCH (17:23)
[2020-09-16] MEDS: traMADol HCL 50 MG TABLET PO PRN (19:18)
[2020-09-16] MEDS: DOCUSATE SODIUM/SENNA 50/8.6MG TAB PO SCH (21:12)
[2020-09-16] MEDS: DOCUSATE SODIUM 100 MG CAP PO SCH (21:13)
[2020-09-17] MEDS: HYDROmorphone INJ 0.5 MG/0.5 ML SYR IV PRN ×2 (01:11→21:24)
[2020-09-17] MEDS: ceFAZolin 1000MG 1,000 MG/7.5 ML SYR IV SCH (01:27)
[2020-09-17] MEDS: oxyCODONE HCL IR 5 MG TAB (IMMEDIATE RELEASE) PO PRN ×2 (03:59→14:03)
[2020-09-17] MEDS: LORazepam 1 MG TAB PO PRN (03:59)
[2020-09-17] MEDS: POLYETHYLENE (MIRALAX) 17 GM PACK PO SCH ×4 (05:17→23:55)
[2020-09-17] MEDS: traMADol HCL 50 MG TABLET PO PRN (06:13)
[2020-09-17 07:43] LABS: Basophils # (auto) 0.01 K/uL (0-0.2); Eosinophils # (auto) 0.06 K/uL (0-0.5); Eosinophils % (auto) 0.3 %; Hematocrit (blood only) 37.6 % (37-47); Hemoglobin 12.5 g/dL (12.0-16.0); Immature Granulocytes # (auto) 0.11 K/uL (0.00-0.02); Immature Granulocytes % (auto) 0.5 %; Lymphocytes # (auto) 3.59 K/uL (1.2-3.4); Lymphocytes % (auto) 15.8 %; Mean Corpuscular Hgb Conc 33.2 g/dL (32-36); Mean Corpuscular Volume 90.2 fL (80-100); Mean Platelet Volume 9.9 fL (7.4-10.4); Monocytes # (auto) 2.13 K/uL (0.11-0.59); Monocytes % (auto) 9.4 %; Neutrophils # (auto) 16.85 K/uL (1.4-6.5); Platelet Count 365 K/uL (130-400); RDW Coefficient of Variation 13.4 % (11.5-14.5); RDW Standard Deviation 43.6 fL (36.4-46.3); Red Blood Count 4.17 M/uL (4.2-5.4); White Blood Count 22.75 K/uL (4.8-10.8)
[2020-09-17 07:58] LABS: BUN Creatinine Ratio 20.6 (10-20); Calcium 9.5 mg/dl (8.5-10.1); Creatinine Clr Calc Pharmacy 38.2 ml/min; Est GFR (African American) 70.5; Est GFR (Non-African American) 60.8; Potassium 4.1 mmol/L (3.5-5.1)
[2020-09-17] MEDS: busPIRone 5 MG TAB PO SCH ×2 (09:31→20:27)
[2020-09-17] MEDS: FERROUS SULFATE 325 MG TAB PO SCH (09:31)
[2020-09-17] MEDS: POTASSIUM CHLORIDE CRTAB 20 MEQ TABCR PO SCH ×2 (09:32→20:28)
[2020-09-17] MEDS: GABAPENTIN 100 MG CAP PO SCH (09:32)
[2020-09-17] MEDS: PANTOprazole 40 MG TAB PO SCH (09:32)
[2020-09-17] MEDS: ACETAMINOPHEN 325 MG TAB PO SCH ×2 (09:33→20:26)
[2020-09-17] MEDS: lisinopril 10 MG TAB PO SCH (09:33)
--- NOTE | 2020-09-17 09:47 | Orthopedic Progress Note ---
Date of Service September 17, 2020 Assessment & Plan (1) Acute low back pain with left-sided sciatica: Admission and Anticipated Discharge Date Admission Date: September 13, 2020 Patient is status post lumbar stabilization L3-S1. She does have a history of significant dementia. I am sure this is exacerbated after her procedure. We have to go very carefully with narcotic pain medication. Hopefully begin transfers bed to chair today. I asked that her bring in her LSO brace to wear when she is up and ambulating for additional support. She certainly does not need to wear this in bed. She does not need to have this on when in the chair. Subjective Patient is somewhat confused this morning. She does not describe any leg or back pain. Physical Exam Physical Exam: On exam she is simple in bed. She does move her toes up and down upon command. Results & Data ([facility]) Vital Signs (Past 12 Hours) Vital Signs Temp Pulse Resp BP Pulse Ox 09/17/20 07:00 36.7 C 102 H 18 181/101 H 96 09/17/20 04:33 36.6 C 86 16 152/83 H 94 09/16/20 23:06 98/61 L 09/16/20 22:56 36.5 C 84 16 94/58 L 96 (1) Acute low back pain with left-sided sciatica Back pain laterality: left Qualified Code(s): M54.42 - Lumbago with sciatica, left side
[2020-09-17] MEDS: DEXAMETHASONE SOD PHOSPHATE 4 MG in SYRINGE 0 ML IV SCH (11:19)
[2020-09-17] MEDS: LACTATED RINGER'S 1,000 ML IV SCH (12:33)
--- NOTE | 2020-09-17 17:43 | Hospitalist Progress Note ---
Date of Service September 17, 2020 Assessment & Plan (1) Post-operative pain: s/p lumbar decompression and fusion L3-4 and L4-[address] Turner on 09/02/[address]: . Small periprosthetic fracture surrounding the right L5 pedicle screw which involves the right of the L5 vertebral body, pedicle, and right transverse process. This results in mild right lateral displacement of the pedicle screw. 2. There is 9 mm of anterolisthesis of L4 on L5 with mild right posterior displacement of the disc spacer. 3. L4-5 posterior decompression and fusion with pedicle screws and rods. No hardware fractures identified. to undergo revision today and L3-S1 decomp/fusion Continue pain control as per ortho Continue dexamethasone as per ortho Continue PT/OT Pain management consulted ease dementia /confusion : monitor for sun downing fall precaution Hypertension: BP stable cont home meds Paroxysmal SVT (supraventricular tachycardia): History of tachyarrhythmia in the past. Had LINQ monitor placed - most recent LINQ interrogation do not detect any dysrhythmias Not currently on any medication Follows with Dr. Baldwin of [facility] CKD (chronic kidney disease) stage 3, GFR 30-59 ml/min: Creatinine 1.1, Baseline Cr ~1. Monitor renal function with daily BMP Anxiety: Continue Buspar Mood stable Dementia: Has not tolerated Aricept or Namenda mood stable, no current signs of delirium - will monitor GERD (gastroesophageal reflux disease): Continue PPI DVT px on SCD CODE STATUS FULL CODE Admission and Anticipated Discharge Date Admission Date: September 13, 2020 Subjective Patient is somewhat confused this morning. She does not describe any leg or back pain. Review of Systems Review of Systems: Unobtainable due to cognitive status (advanced dementia ) Physical Exam Constitutional: WD/WN, vitals as above Eyes: PERRL, conjunctivae normal, anicteric sclerae ENMT: external ear and nose normal, oropharynx normal Neck: trachea midline, no thyromegaly Respiratory: normal respiratory effort, lungs clear to auscultation Cardiovascular: RRR, no murmur, no edema Gastrointestinal (Abdomen): Percussion/Palpation: abdomen soft; abdomen nontender Neurologic: PERRL, EOMI, accommodation nl, no face palsy, no dysarthria Psychiatric: Orientation: + not oriented to place, + not oriented to time and + uncooperative confused Results & Data Results & Data ([facility]) Vital Signs (Past 12 Hours) Vital Signs Temp Pulse Resp BP Pulse Ox 09/17/20 14:55 36.2 C L 97 H 24 122/75 97 09/17/20 11:26 36.2 C L 105 H 16 117/80 98 09/17/20 07:50 99 H 165/99 H 09/17/20 07:00 36.7 C 102 H 18 181/101 H 96
[2020-09-17] MEDS: DOCUSATE SODIUM/SENNA 50/8.6MG TAB PO SCH (20:27)
[2020-09-17] MEDS: DOCUSATE SODIUM 100 MG CAP PO SCH (20:30)
[2020-09-18] MEDS: LORazepam 1 MG/2 ML VIAL IV PRN (01:08)
[2020-09-18] MEDS: oxyCODONE HCL IR 5 MG TAB (IMMEDIATE RELEASE) PO PRN (04:10)
[2020-09-18] MEDS: POLYETHYLENE (MIRALAX) 17 GM PACK PO SCH ×4 (05:58→23:18)
[2020-09-18] MEDS: POTASSIUM CHLORIDE CRTAB 20 MEQ TABCR PO SCH ×2 (07:44→20:15)
[2020-09-18] MEDS: PANTOprazole 40 MG TAB PO SCH (07:45)
[2020-09-18] MEDS: FERROUS SULFATE 325 MG TAB PO SCH (07:45)
[2020-09-18] MEDS: GABAPENTIN 100 MG CAP PO SCH (07:45)
[2020-09-18] MEDS: DEXAMETHASONE SOD PHOSPHATE 4 MG in SYRINGE 0 ML IV SCH (07:46)
[2020-09-18] MEDS: lisinopril 10 MG TAB PO SCH (07:46)
[2020-09-18] MEDS: hydroCHLOROthiazide 25 MG TAB PO SCH (07:47)
[2020-09-18] MEDS: ACETAMINOPHEN 325 MG TAB PO SCH (07:48)
[2020-09-18] MEDS: busPIRone 5 MG TAB PO SCH ×3 (07:48→20:21)
[2020-09-18] MEDS: HYDROmorphone INJ 0.5 MG/0.5 ML SYR IV PRN ×3 (07:58→20:48)
--- NOTE | 2020-09-18 08:46 | Orthopedic Progress Note ---
Date of Service September 18, 2020 Assessment & Plan (1) Post-operative pain: Admission and Anticipated Discharge Date Admission Date: September 13, 2020 At this time we will continue with physical therapy. Her NAEL output is decreased its reasonable to have this removed today. We will change her dressing. Plan for rehab placement when able. Subjective Patient states her back pain is controlled. She is denying any leg pain. Physical Exam Physical Exam: On exam she is sitting up in bed. She has tenderness palpation of the lower extremities. Apparently this has been present for some time. She does have reasonable plantar flexion dorsiflexion. She is not oriented to place but more alert today. Results & Data ([facility]) Vital Signs (Past 12 Hours) Vital Signs Temp Pulse Resp BP Pulse Ox 09/18/20 07:04 36.3 C L 87 18 173/80 H 98 09/17/20 23:09 36.5 C 63 18 106/67 97
--- NOTE | 2020-09-18 09:54 | Hospitalist Progress Note ---
Date of Service September 18, 2020 Assessment & Plan (1) Post-operative pain: S/p lumbar decompression and fusion L3-4 and L4-[address] Turner on 09/02/[address]: . Small periprosthetic fracture surrounding the right L5 pedicle screw which involves the right of the L5 vertebral body, pedicle, and right transverse process. This results in mild right lateral displacement of the pedicle screw. 2. There is 9 mm of anterolisthesis of L4 on L5 with mild right posterior displacement of the disc spacer. 3. L4-5 posterior decompression and fusion with pedicle screws and rods. No hardware fractures identified. to undergo revision today and L3-S1 decomp/fusion Continue pain control as per ortho Continue dexamethasone as per ortho Continue PT/OT Pain management consulted last ekg 08/19 - 61bpm, NSR with PVC, CXR 08/19 - no active disease Leukocytosis: wbc 18k --> 22, likely in setting of dexamethasone use repeat CBC pending afebrile. increased urinary urgency, per nursing. will obtain UA + culture if indicated will monitor ? Delirium: Underlying Alzheimer's -has been tearful, calling out to family who isn't there - easily re-directed Will obtain UA to evaluate for underlying infection Limit narcotics, will schedule tylenol, re-orient Hypertension: BP elevated Continue lisinopril 10 mg, HCTZ resumed yesterday morning Continue Hydralazine IV prn Continue monitor BP Paroxysmal SVT (supraventricular tachycardia): History of tachyarrhythmia in the past. Had LINQ monitor placed - most recent LINQ interrogation do not detect any dysrhythmias Not currently on any medication Follows with Dr. Baldwin of [place] [facility] CKD (chronic kidney disease) stage 3, GFR 30-59 ml/min: Creatinine 1.1, Baseline Cr ~1. Monitor renal function with daily BMP Anxiety: Continue Buspar Mood stable GERD (gastroesophageal reflux disease): Continue PPI DVT px on SCD CODE STATUS FULL CODE Patient seen in collaboration with Dr. Clancy. Please see addendum. Admission and Anticipated Discharge Date Admission Date: September 13, 2020 Supervising Physician Co-Signing Physician Notes Attending addendum: 80-year-old female that is post revision of spinal decompression surgery, Covering well from orthopedics procedure, Baseline dementia, associated with confusion and anxiety, continue to provide supportive care Leukocytosis possible steroid induced, no sign of infection Patient remains medically stable, please refer to further documentation by Diana Weir PA-C for discussion of other issues Kala Clancy MD Subjective Patient examined in 350-2. Anxious and tearful but denies pain. Is asking for Griffin at bedside but easily reoriented. No fever, chills, lightheadedness, chest pain, SOB, N/V/D. Urinating frequently since coats catheter removal. Review of Systems Review of Systems: At least ten systems reviewed and negative except as noted in the HPI. Physical Exam Physical Exam: Gen: Thin, petite, F, lying in bed, NAD, tearful and distracted. Alert & oriented to person and place but not to time, situation HEENT: Normocephalic, atraumatic, conjunctivae moist, sclerae anicteric, mucous membranes moist. Lung: Clear to Auscultation bilaterally, no wheezes/rales/rhonchi Heart: Regular rate, regular rhythm, no murmurs, rubs, or gallops Abdomen: Soft, NT, ND +BS x 4 Extremities: Lumbosacral dressing c/d/i. No drain visualized. No edema Skin: Warm, no rash, negative turgor. Results & Data Results & Data ([facility]) Vital Signs (Past 12 Hours) Vital Signs Temp Pulse Resp BP Pulse Ox 09/18/20 07:04 36.3 C L 87 18 173/80 H 98 09/17/20 23:09 36.5 C 63 18 106/67 97
[2020-09-18 11:29] LABS: Hematocrit (blood only) 37.9 % (37-47); Hemoglobin 12.5 g/dL (12.0-16.0); Mean Corpuscular Hemoglobin 29.8 pg (25-34); Mean Corpuscular Volume 90.2 fL (80-100); Mean Platelet Volume 9.8 fL (7.4-10.4); Platelet Count 327 K/uL (130-400); RDW Coefficient of Variation 13.4 % (11.5-14.5); RDW Standard Deviation 44.1 fL (36.4-46.3); White Blood Count 19.91 K/uL (4.8-10.8)
[2020-09-18 11:54] LABS: BUN Creatinine Ratio 19.7 (10-20); Calcium 10.3 mg/dl (8.5-10.1); Creatinine Clr Calc Pharmacy 32.5 ml/min; Est GFR (African American) 57.8; Est GFR (Non-African American) 49.9; Potassium 4.7 mmol/L (3.5-5.1)
[2020-09-18 12:08] LABS: Appearance Urine Clear (Clear); Bacteria Urine Automated Negative (Negative); Bilirubin Urine Negative (Negative); Blood Urine Trace (Negative); Cast Urine Automated 0 /lpf (0-5); Color Urine Yellow; Epithelial Cell Urine Auto 20-30 /lpf (0-5); Glucose Urine UA Negative (Negative); Ketones Urine Negative (Negative); Leukocyte Esterase Urine 1+ (Negative); Nitrite Urine Negative (Negative); Protein Urine Negative (Negative); RBC Urine Automated 0-4 /hpf (0-4); Urobilinogen Urine Negative (Negative); pH Urine 7.5 (4.5-7.5)
[2020-09-18] MEDS: LORazepam 0.5 MG TAB PO PRN (12:19)
[2020-09-18] MEDS: ACETAMINOPHEN 500 MG TAB PO SCH ×3 (12:54→20:21)
[2020-09-18] MEDS: DOCUSATE SODIUM/SENNA 50/8.6MG TAB PO SCH ×2 (20:14→20:21)
[2020-09-18] MEDS: DOCUSATE SODIUM 100 MG CAP PO SCH ×2 (20:15→20:21)
[2020-09-19] MEDS: LORazepam 1 MG/2 ML VIAL IV PRN (01:05)
[2020-09-19] MEDS: HYDROmorphone INJ 0.5 MG/0.5 ML SYR IV PRN ×2 (01:38→08:19)
[2020-09-19] MEDS: ACETAMINOPHEN 500 MG TAB PO SCH ×2 (05:08→11:50)
[2020-09-19] MEDS: POLYETHYLENE (MIRALAX) 17 GM PACK PO SCH ×2 (05:08→11:50)
--- NOTE | 2020-09-19 08:07 | Orthopedic Progress Note ---
Date of Service September 19, 2020 Assessment & Plan (1) Acute low back pain with left-sided sciatica: Admission and Anticipated Discharge Date Admission Date: September 13, 2020 At this time patient is a candidate for discharge if we can arrange adequate home care with physical therapy and nursing. I had a lengthy discussion this morning with her . He feels she would be best at home and less agitated. I tend to agree. They are quite hesitant to entertain a nursing facility. Subsequently allow her to discharge home today if medically cleared. Subjective Patient is very alert this morning she is oriented. She does have some back pain but states it is controlled. Physical Exam Physical Exam: On exam she has good strength testing she is not tender today. Results & Data ([facility]) Vital Signs (Past 12 Hours) Vital Signs Temp Pulse Resp BP Pulse Ox 09/19/20 07:48 36.4 C L 101 H 16 152/74 H 97 09/18/20 22:57 36.4 C L 75 16 127/61 98 (1) Acute low back pain with left-sided sciatica Back pain laterality: left Qualified Code(s): M54.42 - Lumbago with sciatica, left side
[2020-09-19] MEDS: LORazepam 0.5 MG TAB PO PRN (08:09)
[2020-09-19] MEDS: GABAPENTIN 100 MG CAP PO SCH (09:32)
[2020-09-19] MEDS: FERROUS SULFATE 325 MG TAB PO SCH (09:32)
[2020-09-19] MEDS: PANTOprazole 40 MG TAB PO SCH (09:33)
[2020-09-19] MEDS: busPIRone 5 MG TAB PO SCH (09:33)
[2020-09-19 09:34] LABS: Hemoglobin 11.3 g/dL (12.0-16.0); Mean Corpuscular Hemoglobin 29.2 pg (25-34); Mean Corpuscular Hgb Conc 32.3 g/dL (32-36); Mean Corpuscular Volume 90.4 fL (80-100); Platelet Count 312 K/uL (130-400); RDW Coefficient of Variation 13.4 % (11.5-14.5); RDW Standard Deviation 43.8 fL (36.4-46.3); Red Blood Count 3.87 M/uL (4.2-5.4); White Blood Count 17.17 K/uL (4.8-10.8)
[2020-09-19] MEDS: POTASSIUM CHLORIDE CRTAB 20 MEQ TABCR PO SCH (09:34)
[2020-09-19] MEDS: hydroCHLOROthiazide 25 MG TAB PO SCH (09:34)
[2020-09-19 10:08] LABS: BUN Creatinine Ratio 26.4 (10-20); Calcium 9.9 mg/dl (8.5-10.1); Creatinine Clr Calc Pharmacy 39.6 ml/min; Est GFR (African American) 73.4; Est GFR (Non-African American) 63.4; Potassium 4.1 mmol/L (3.5-5.1)
--- NOTE | 2020-09-19 10:17 | Hospitalist Progress Note ---
Date of Service September 19, 2020 Assessment & Plan (1) Post-operative pain: s/p lumbar decompression and fusion L3-4 and L4-[address] Turner on 09/02/[address]: . Small periprosthetic fracture surrounding the right L5 pedicle screw which involves the right of the L5 vertebral body, pedicle, and right transverse process. This results in mild right lateral displacement of the pedicle screw. 2. There is 9 mm of anterolisthesis of L4 on L5 with mild right posterior displacement of the disc spacer. 3. L4-5 posterior decompression and fusion with pedicle screws and rods. No hardware fractures identified. 09/16/20: S/p revision and extension of fusion L3-S1 Continue pain control as per ortho Continue dexamethasone as per ortho Continue PT/OT Hgb stable 11.3 LEUKOCYTOSIS: WBC 17K, trending down Likely due to IV dexamethasone Afebrile, no signs of infection DEMENTIA/CONFUSION: UA does not suggest UTI fall precaution Likely hospital delirium in the setting of underlying dementia Has not tolerated Aricept or Namenda in the past HYPERTENSION: BP stable Continue HCTZ, resume lisinopril today PAROXYSMAL SVT (SUPRAVENTRICULAR TACHYCARDIA): History of tachyarrhythmia in the past. Had LINQ monitor placed - most recent LINQ interrogation do not detect any dysrhythmias Not currently on any medication Follows with Dr. Baldwin of [place] [facility] CKD (CHRONIC KIDNEY DISEASE) STAGE 3, GFR 30-59 ML/MIN: Baseline Cr ~1 Creatinine 0.8 today ANXIETY: Continue Buspar Mood stable GERD (gastroesophageal reflux disease): Continue PPI DVT px on SCD CODE STATUS FULL CODE Admission and Anticipated Discharge Date Admission Date: September 13, 2020 Supervising Physician Co-Signing Physician Notes Attending addendum: 80-year-old female with baseline dementia status post revision of lumbar decompression surgery, due to hardware complication However doing well from orthopedics procedure, Pain well controlled, Episodes of confusion, noted secondary to baseline dementia hospitalization Mental status to approximate baseline today, no fever or chills, leukocytosis possible secondary to steroids induced given post spinal procedure. Medically stable to be discharged home as per orthopedics team Refer to further documentation by Gretta TREJO for discussion of other issues. Kala Clancy MD Subjective Patient seen and examined. Resting in bed, no acute distress. Offers no complaints, reports back pain is improved. Remains confused, poor historian. Physical Exam Constitutional: + thin; no acute distress Respiratory: normal respiratory effort, lungs clear to auscultation Cardiovascular: Rate/Rhythm: regular rate and regular rhythm Vessels: normal peripheral pulses Extremities: no edema Gastrointestinal (Abdomen): Inspection/Auscultation: normal bowel sounds Percussion/Palpation: abdomen soft; abdomen nontender Musculoskeletal: S/p back surgery, strength strong and equal BLE Neurologic: No gross focal deficit Psychiatric: Orientation: alert, oriented to person and oriented to place; + not oriented to time Insight: + limited insight Results & Data Results & Data ([facility]) Vital Signs (Past 12 Hours) Vital Signs Temp Pulse Resp BP Pulse Ox 09/19/20 07:48 36.4 C L 101 H 16 152/74 H 97 09/18/20 22:57 36.4 C L 75 16 127/61 98 Laboratory Results Short CBC 09/18/20 09/19/20 Range/Units 11:17 09:13 WBC 19.91 H 17.17 H (4.8-10.8) K/uL Hgb 12.5 11.3 L (12.0-16.0) g/dL Hct 37.9 35.0 L (37-47) % Plt Count 327 312 (130-400) K/uL BMP 09/18/20 09/19/20 11:17 09:13 Sodium 132 L 134 L Potassium 4.7 4.1 Chloride 98 101 Carbon Dioxide 28 26 BUN 21 H 23 H Creatinine 1.06 0.87 Glucose 138 H 109 H Calcium 10.3 H 9.9 Urine 09/18/20 Range/Units Unknown Urine Color Yellow Urine Appearance Clear (Clear) Urine pH 7.5 (4.5-7.5) Ur Specific [place] 1.010 (1.000-1.030) Urine Protein Negative (Negative) Urine Glucose (UA) Negative (Negative)
[2020-09-19] MEDS ORDERED: lisinopril 10 MG TAB PO SCH (10:30)
--- NOTE | 2020-09-19 10:56 | XRay Report ---
LUMBAR SPINE 3 VIEWS CLINICAL HISTORY: Postoperative examination. FINDINGS: 3 views of the lumbar spine are compared to study dated 09/13/2020. The skeletal structures a re osteopenic. No acute fracture is identified. Vertebral body height is maintained throughout the montrell mbar spine. There is 10 mm anterolisthesis at L4-L5. Alignment is otherwise preserved. The disc space r at L4-L5 has been removed. There is postoperative change from laminectomy and posterior fusion seen from L3- S1 with interpositioned bone graft. Interpedicular screws are present at all levels. The or thopedic hardware appears intact. Anterior and lateral marginal osteophytes are seen throughout. The transverse processes appear intact. Moderate to advanced disc space narrowing is seen at L1-L2, L4-L5 , and L5-S1. The visualized bony pelvis appears intact. Atherosclerotic calcification is noted in the abdominal aorta. Cholecystectomy clips are seen in the right upper quadrant. No bowel obstruction is identified. IMPRESSION: 1. No acute fracture is identified. 2. Postoperative and spondylotic changes as above. The orthopedic hardware appears intact. Dictated: 09/19/2020 9:11 AM Transcribed: 09/19/2020 9:33 AM Miya [id number] [email or web address] Electronically signed by: Chace Delgado M.D. 09/19/2020 10:55 AM
[2020-09-19] MEDS: DEXAMETHASONE SOD PHOSPHATE 4 MG in SYRINGE 0 ML IV SCH (11:49)
--- NOTE | 2020-09-29 10:13 | Discharge Summary ---
Date of Service September 29, 2020 Admission HPI Per Admitting Provider This is a 80-year-old female known to me status post lumbar decompression fusion. Overall she is done very nicely but over the past 48 hours has had increasing left-sided lumbar back pain. No radicular complaints no loss of bowel bladder control no fevers chills nausea vomiting. Principal Diagnosis Lumbar spine fracture Discharge Data Allergies Allergy/AdvReac Type Severity Reaction Status Date / Time cephalexin [From Keflex] Allergy Intermediate Unknown Verified 09/13/20 09:07 Consultations 09/13/20 09:40 ED Decision to Admit Stat 09/13/20 12:15 Consult Internal Medicine Routine 09/16/20 12:25 Consult Case Management - Discharge Planning Routine Procedures Performed Operation Date: 09/16/20 07:50 Actual Procedures p L3-S1 Decompression and Fusion, Spinal Cord Monitoring(Not Applicable) - Orville Turner DO Ordered Studies 09/14/20 11:05 CT lumbar spine wo con Routine 09/16/20 07:00 FL fluoroscopy <1hr Routine FL lumbar spine 2-3V Routine Hospital Course (1) Acute low back pain with left-sided sciatica: Patient was admitted with acute back and leg pain and diagnosed with fracture at L4-L5 pedicles and underwent revision procedure. She tolerated well was taken to orthopedic floor postoperatively. Postop day 1 she was able to sit up but still difficult to indicate with secondary to her dementia and postoperative confusion. She did progress the next few days and ultimately discharged home under the care of her and home health. Discharge orders and instructions found the chart for further review. Total Time Total Time Spent Total Time Spent (In Minutes): 20 minutes Discharge Plan Discharge Items Patient Disposition: Home - Home Health Services Reason For Visit: POST OP BACK PAIN Discharge Diagnosis: Lumbar fracture L4 and L5 postoperatively. Activity: As commented below Non-emergency contact: Primary Care Provider Call non-emergency contact if: you have any medication questions Follow-up/Referrals: Orville Turner DO [Surgeon] - 09/16/20 12:45 pm (at [place] office) Debra Rincon CRNP [Primary Care Provider] - Diet: Regular Addtl Attending Provider Instructions: ACTIVITY RECOMMENDATIONS: SELF CARE INSTRUCTIONS AFTER THORACIC/LUMBAR FUSIONS 1. You may walk to your tolerance. It is good exercise for your legs and back. Expect some back and intermittent leg aches and pains. 2. You may perform "counter-top" level activities (make a sandwich, estrella with a project, etc.). 3. No bending or lifting of more than 10 pounds or back twisting of any nature (roll like a log when turning in bed). 4. You may ride in a car for 20-30 minutes at a time. No driving until after your first visit with your doctor. 5. Frequent changes of position and restricting sitting to 30 minutes at a time will help limit the amount of back spasms and stiffness you may experience. 6. You may discontinue the use of ambulatory aids (cane, crutches, etc.) once your strength and confidence allow. 7. You may retail link analyst the shower and let water strike your incision when you arrive home at least once daily. Do not take a tub bath, sit in a hot tub or go into a swimming pool until after your first recheck in the office. SPECIAL CARE INSTRUCTIONS: VERY IMPORTANT TO READ AND REVIEW A. Your surgical incision has been closed with a cosmetic suture under the skin that will dissolve in about 6 weeks. In 14 days, you can use a pair of clean scissors and cut the suture that is left outside of the skin at the ends of your incision. 1. The small skin tapes can be removed 7 days after surgery if they have not fallen off by that point. 2. You may keep the wound open to air as much as possible to promote healing after post-op day number 5 unless told otherwise by your doctor. 3. If you think the wound looks like it is becoming infected (redness or worsening drainage) and/or you are experiencing fever, chill or worsening back pain and muscle spasms, contact the office so that we may evaluate you as soon as possible. B. Complications are uncommon, but please contact us if you have any signs or symptoms of: 1. wound infection (fever higher than 102.5 degrees F, redness, separation of wound, drainage, or increasing pain from the incision) 2. blood clots in legs (pain, swelling, redness and warmth in legs) 3. urinary tract infection (fever higher than 102.5 degrees F, burning upon urination or increased frequency of urination) 4. nerve problems (inability to walk on your toes or heels, numbness, loss of bowel or bladder control) 5. any other symptoms that concern you C. Please call the office at if you have any concerns or questions about your operation or recovery. D. No smoking! Smoking drastically decreases the chance of a solid fusion. E. Do not take any anti-inflammatory medications (Indocin, Advil, Motrin, Aspirin, Naprosyn, etc.) as these may inhibit the chance of a solid fusion. Tylenol is okay to take for pain. MANAGING PAIN AFTER SPINAL SURGERY 1. Narcotic medication is intended for short-term use and will be provided for surgical pain. Surgical pain usually lasts for a period of 4-6 weeks. Narcotic medication includes Percocet, Vicodin, Darvocet, Tylenol #3 or Lortab. 2. Longer-term pain is more appropriately treated with non-narcotic medication such as Tylenol ES. 3. Muscle spasm is not appropriately treated with narcotics. Muscle relaxers such as Soma, Flexeril or Skelaxin can be used along with Tylenol ES. 4. Remember that we all live with some "aches and pains". This is not unusual or uncommon after an injury or as we get older. a. Back pain is expected and may include muscle spasms for 4 to 6 weeks after surgery. The pain should gradually improve. If the pain worsens for no apparent reason, please contact the office. b. Intermittent leg pain may also be experienced and should not be concerned about unless it worsens for no apparent reason. If so, please contact the office. 5. We will provide appropriate medication within the normal guidelines of their prescribed use. We will also be very cautious and aware of potential abuse and extended duration of patients' medication needs. a. Pain medications are for your comfort and to assist with sleep and rest so that the tissue can heal. They are not provided in order to return to normal activity and should not be used through the day. To do so or worsening pain at night can result from ongoing tissue damage and development of tolerance to the prescribed medicine. 6. Please allow 2-3 days to process refills. Prescriptions will not be mailed but must be picked up at the office. FOLLOW UP VISIT: Keep your scheduled follow-up appointment. Any questions, please call the office at . Pending Studies at Discharge: No Stand-Alone Forms: [employer], Opioid Pain Management, Smoking Cessation Medications and DC Order Prescriptions: New tramadol 50 mg tablet 50 mg PO Q6H PRN (Reason: pain, moderate) Qty: 2 RF: 0 Continued buspirone 5 mg Tablet 10 mg PO BID RF: 0 acetaminophen [Tylenol 8 Hour] 650 mg Tablet Extended Release 650 mg PO BID RF: 0 pantoprazole 40 mg Tablet,Delayed Release (Dr/Ec) 40 mg PO QAM RF: 0 ferrous sulfate [iron] 325 mg (65 mg iron) Tablet 325 mg PO QAM RF: 0 lisinopril 10 mg Tablet 10 mg PO QAM RF: 0 docusate sodium [Stool Softener] 100 mg Tablet 100 mg PO PM RF: 0 Laxative (bisacodyl) 5 mg Tablet 5 mg PO HS PRN (Reason: Constipation) RF: 0 potassium chloride 20 mEq Tablet Extended Release 20 meq PO BID RF: 0 tramadol 50 mg tablet 50 mg PO Q6H PRN (Reason: pain, moderate) Qty: 30 RF: 0 hydrochlorothiazide 25 mg Tablet 25 mg PO QAM Qty: 30 RF: 0 gabapentin 100 mg Capsule 100 mg PO DAILY RF: 0 methylprednisolone 4 mg tablets,dose pack 4 mg PO UD RF: 0 lidocaine 5 % adhesive patch,medicated 1 patch topical DAILY Qty: 15 RF: 0 oxycodone 5 mg tablet 2.5 - 5 mg PO Q6H PRN (Reason: pain) Qty: 12 RF: 0 Discharge Orders: Discharge Order (Routine); Ordered 09/19/20 Ordered By: Orville Wheat/Other Patient Handouts: DVT Post Op Prevention, Back Safety: Bending, Back Safety: Sleeping Positions, Back Safety: Sitting, Back Safety: Standing, Back Safety: Turning Admission Data Admit Date/Time: 09/13/20 10:51 Attending Provider: Orville Turner Admit Provider: Orville Turner Primary Care Provider: Debra Rincon Other Providers: Arpan Flower ; Orville Turner ; Landon Tovar ; Kala Clancy ; [facility] Other Interventions: Discharge Summary Assessment (RN) Last Done: 09/19/20 12:32
== END 2020-09-19 14:29 | disposition home health service (06) | DRG 460 ==
LOC: ED 08:31 → 3W 10:51